=== PATIENT | female | born 1945 | race Caucasian/White ===

== ENCOUNTER 2019-05-14 14:39 | Day surgery (SDC) | payer OTHER ==
[2019-05-14] MEDS ORDERED: Marcaine 0.5% SDV 10 ML IJ ONE (14:40)
[2019-05-14] MEDS ORDERED: Depo-Medrol 40 MG/ML IM ONE (14:40)
[2019-05-14] MEDS ORDERED: Xylocaine 1% Vial 30 ML PF IJ ONE (14:40)
--- NOTE | 2019-05-14 16:59 | XRAY ---
8 seconds fluoroscopy time in surgery for left knee injection.
--- NOTE | 2019-05-14 17:00 | XRAY ---
Indication: Left knee injection. Intraoperative fluoroscopy was provided for 8 seconds. Single digital spot image submitted for interpretation demonstrates needle tip projecting over the left femur intercondylar notch. Small amount of contrast injected for needle tip placement. Correlate with intraoperative findings/report.
== END 2019-05-14 16:30 | disposition home or self-care (01) ==
LOC: SDC-PAIN 14:39
PROVIDERS: ATTEND Psychiatry & Neurology Pain Medicine
DX: M17.12 Unilateral primary osteoarthritis, left knee (principal); J44.9 Chronic obstructive pulmonary disease, unspecified; Z79.899 Other long term (current) drug therapy
CPT/HCPCS: 73560; 77002; J1030; J2001

== ENCOUNTER 2019-06-11 13:36 | Day surgery (SDC) | payer OTHER ==
[2019-06-11] MEDS ORDERED: Xylocaine 1% Vial 30 ML PF IJ ONE (13:37)
[2019-06-11] MEDS ORDERED: Depo-Medrol 40 MG/ML IM ONE (13:37)
[2019-06-11] MEDS ORDERED: Marcaine 0.5% SDV 10 ML IJ ONE (13:37)
--- NOTE | 2019-06-11 16:13 | XRAY ---
Indication: Left hip intra-articular injection. Intraoperative fluoroscopy was provided for 11 seconds. Single digital spot image submitted for interpretation demonstrates needle just lateral to the left femur head. Small amount of contrast injected for needle tip placement. Correlate with intraoperative findings/report.
--- NOTE | 2019-06-11 16:54 | XRAY ---
11 seconds fluoroscopy time in surgery for left intra-articular hip injection.
== END 2019-06-11 15:11 | disposition home or self-care (01) ==
LOC: SDC-PAIN 13:36
PROVIDERS: ATTEND Psychiatry & Neurology Pain Medicine
DX: M16.12 Unilateral primary osteoarthritis, left hip (principal); J44.9 Chronic obstructive pulmonary disease, unspecified; F32.9 Major depressive disorder, single episode, unspecified; Z79.899 Other long term (current) drug therapy
CPT/HCPCS: 20610; 73501; 77002; J1030; J2001; Q9966

== ENCOUNTER 2019-07-09 13:34 | Day surgery (SDC) | payer OTHER ==
[2019-07-09] MEDS ORDERED: Xylocaine 1% Vial 30 ML PF IJ ONE (13:35)
[2019-07-09] MEDS ORDERED: Marcaine 0.5% SDV 10 ML IJ ONE (13:35)
[2019-07-09] MEDS ORDERED: Depo-Medrol 40 MG/ML IM ONE (13:35)
--- NOTE | 2019-07-09 16:34 | XRAY ---
Indication: Left SI joint injection. Intraoperative fluoroscopy was provided for 11 seconds. 2 digital spot images submitted for interpretation demonstrates posterior needle tip projecting over the inferior left SI joint. Correlate with intraoperative findings/report.
--- NOTE | 2019-07-09 16:36 | XRAY ---
11 seconds fluoroscopy time in surgery for left SI joint injection.
== END 2019-07-09 14:35 | disposition home or self-care (01) ==
LOC: SDC-PAIN 13:34
PROVIDERS: ATTEND Psychiatry & Neurology Pain Medicine
DX: M46.1 Sacroiliitis, not elsewhere classified (principal); J44.9 Chronic obstructive pulmonary disease, unspecified; Z79.899 Other long term (current) drug therapy
CPT/HCPCS: 27096; 72020; 77002; J1030; J2001; G0260

== ENCOUNTER 2020-03-17 10:41 | Day surgery (SDC) | payer OTHER, MEDICARE ==
[2020-03-17] MEDS ORDERED: Sodium Chloride 0.9% 10 ML FLUSH Syringe IJ ONE (10:42)
[2020-03-17] MEDS ORDERED: Depo-Medrol 40 MG/ML IM ONE (10:42)
--- NOTE | 2020-03-17 13:04 | XRAY ---
Indication: Left L4-S1 transforaminal DENA. Intraoperative fluoroscopy was provided for 27 seconds. 3 digital spot images submitted for interpretation demonstrate posterior needle tips projecting over the expected course of the left L4 and L5 nerve roots. Small amount of contrast injected for needle tip placement. Correlate with intraoperative findings/report.
[2020-03-17] MEDS ORDERED: Ketamine HCl 50 MG/ML ONE (13:07)
[2020-03-17] MEDS ORDERED: DIPRIVAN 200 MG/20 ML IV ONE (13:07)
--- NOTE | 2020-03-17 13:23 | XRAY ---
27 seconds fluoroscopy time in surgery for left L4-S1 transforaminal DENA.
[2020-03-17] MEDS ORDERED: Lactated Ringers 1,000 ML IV ONE (14:46)
== END 2020-03-17 12:41 | disposition home or self-care (01) ==
LOC: SDC-PAIN 10:41
PROVIDERS: ATTEND Psychiatry & Neurology Pain Medicine
DX: M54.16 Radiculopathy, lumbar region (principal); J44.9 Chronic obstructive pulmonary disease, unspecified; Z85.3 Personal history of malignant neoplasm of breast; Z79.899 Other long term (current) drug therapy
CPT/HCPCS: 64483; 64484; 64493; 72100; 77003; 99100; J1030; J2704; Q9966

== ENCOUNTER 2020-03-24 10:17 | Day surgery (SDC) | payer MEDICARE ==
[2020-03-24] MEDS ORDERED: Depo-Medrol 40 MG/ML IM ONE (10:18)
[2020-03-24] MEDS ORDERED: Xylocaine 1% Vial 30 ML PF IJ ONE (10:18)
[2020-03-24] MEDS ORDERED: Sodium Chloride 0.9(Preservative Free) 10 ML IJ ONE (10:18)
[2020-03-24] MEDS ORDERED: DIPRIVAN 200 MG/20 ML IV ONE (12:04)
[2020-03-24] MEDS ORDERED: Ketamine HCl 50 MG/ML ONE (12:04)
[2020-03-24] MEDS ORDERED: Lactated Ringers 1,000 ML IV ONE (12:37)
--- NOTE | 2020-03-24 14:03 | XRAY ---
Indication: Lumbar DENA. Intraoperative fluoroscopy was provided for 9 seconds. 2 digital spot images submitted for interpretation demonstrates midline posterior needle tip projecting just posterior to the lumbosacral junction interspace. Small amount of contrast injected for needle tip placement. Correlate with intraoperative findings/report.
--- NOTE | 2020-03-24 14:21 | XRAY ---
9 seconds fluoroscopy time in surgery for lumbar DENA.
== END 2020-03-24 12:33 | disposition home or self-care (01) ==
LOC: SDC-PAIN 10:17
PROVIDERS: ATTEND Psychiatry & Neurology Pain Medicine
DX: M54.16 Radiculopathy, lumbar region (principal); J44.9 Chronic obstructive pulmonary disease, unspecified; F32.9 Major depressive disorder, single episode, unspecified; Z79.899 Other long term (current) drug therapy
CPT/HCPCS: 62323; 72100; 77003; J1030; J2001; J2704; Q9966

== ENCOUNTER 2020-08-25 13:18 | Day surgery (SDC) | payer MEDICARE ==
[2020-08-25] MEDS ORDERED: Depo-Medrol 40 MG/ML IM ONE (13:19)
[2020-08-25] MEDS ORDERED: Sodium Chloride 0.9(Preservative Free) 10 ML IJ ONE (13:19)
[2020-08-25] MEDS ORDERED: Ketamine HCl 50 MG/ML ONE (15:09)
[2020-08-25] MEDS ORDERED: DIPRIVAN 200 MG/20 ML IV ONE (15:09)
--- NOTE | 2020-08-25 16:39 | XRAY ---
Indication: Right L4-S1 transforaminal DENA. Intraoperative fluoroscopy was provided for 36 seconds. 6 digital spot images submitted for interpretation demonstrates posterior needle tips projecting over the expected right L4 and L5 nerve roots. Small amount of contrast injected for needle tip placement. Correlate with intraoperative findings/report.
[2020-08-25] MEDS ORDERED: Lactated Ringers 1,000 ML IV ONE (16:51)
--- NOTE | 2020-08-25 16:51 | XRAY ---
36 seconds fluoroscopy time in surgery for right L4-S1 transforaminal DENA.
== END 2020-08-25 15:35 | disposition home or self-care (01) ==
LOC: SDC-PAIN 13:18
PROVIDERS: ATTEND Psychiatry & Neurology Pain Medicine
DX: M54.16 Radiculopathy, lumbar region (principal); J44.9 Chronic obstructive pulmonary disease, unspecified; Z85.3 Personal history of malignant neoplasm of breast; Z79.899 Other long term (current) drug therapy
CPT/HCPCS: 64483; 64484; 72100; 77003; J1030; J2704; Q9966

== ENCOUNTER 2021-02-02 11:21 | Day surgery (SDC) | payer MEDICARE ==
[2021-02-02] MEDS ORDERED: Depo-Medrol 40 MG/ML IM ONE (11:22)
[2021-02-02] MEDS ORDERED: Sodium Chloride 0.9(Preservative Free) 10 ML IJ ONE (11:22)
[2021-02-02] MEDS ORDERED: DIPRIVAN 200 MG/20 ML IV ONE (13:38)
--- NOTE | 2021-02-02 14:22 | XRAY ---
Indication: Right L4-S1 transforaminal DENA. Intraoperative fluoroscopy provided for 40 seconds. 3 digital spot images submitted for interpretation demonstrates posterior needle tips projecting over the expected right L4 and L5 nerve roots. Small amount of contrast injected for needle tip placement. Correlate with intraoperative findings/report.
--- NOTE | 2021-02-02 15:21 | XRAY ---
40 seconds fluoroscopy time in surgery for right L4-S1 transforaminal DENA.
[2021-02-02] MEDS ORDERED: Lactated Ringers 1,000 ML IV ONE (16:11)
== END 2021-02-02 14:06 | disposition home or self-care (01) ==
LOC: SDC-PAIN 11:21
PROVIDERS: ATTEND Psychiatry & Neurology Pain Medicine
DX: M54.16 Radiculopathy, lumbar region (principal); J44.9 Chronic obstructive pulmonary disease, unspecified; Z85.3 Personal history of malignant neoplasm of breast; Z79.899 Other long term (current) drug therapy
CPT/HCPCS: 64483; 64484; 72100; 77003; J1030; J2704; Q9966

== ENCOUNTER 2021-03-23 12:52 | Emergency (ER) | payer MEDICARE ==
--- NOTE | 2021-03-23 13:02 | ERPHSYRPT ---
- History of Present Illness Time Seen by Provider: 03/23/21 13:01 Source: patient, family Exam Limitations: no limitations Physician History: This is a thin 75-year-old white female patient of nurse practitioner Kortney who presents with a several week history of intermittent weakness and sensation that she is not getting of enough air. She states she has no chest pain and she is not really short of breath. She does feel nauseated but has not vomited. She has no abdominal pain. She has had no diarrhea. She is had no fevers she has no known exposures to anybody with viral illnesses of any kind. Patient takes only antidepressant medication. Timing/Duration: week(s) Severity: mild (Mild to moderate) Associated Symptoms: nausea, weakness, No vomiting, No abdominal pain, No shortness of breath, No chest pain, No headaches, No syncope Allergies/Adverse Reactions: No Known Drug Allergies Allergy (Verified 03/23/21 13:07) Home Medications: Paroxetine HCl 20 mg [Paxil 20 MG] 20 mg PO DAILY 12/24/17 [History] Celecoxib [Celebrex] 200 mg PO BID 01/21/18 [History] Pregabalin 25 mg [Lyrica 25 MG] 25 mg PO DAILY 01/21/18 [History] Travel Risk - International Travel Have you traveled outside of the country in past 3 weeks: No - Coronavirus Screening Are you exhibiting any of the following symptoms?: No Close contact with a COVID-19 positive Pt in past 14-21 Days: No - Review of Systems Constitutional: Weakness Eyes: No Symptoms Ears, Nose, & Throat: No Symptoms Respiratory: No Symptoms Cardiac: No Symptoms Abdominal/Gastrointestinal: Nausea, No Abdominal Pain, No Vomiting, No Diarrhea Genitourinary Symptoms: No Symptoms Musculoskeletal: No Symptoms Skin: No Symptoms Neurological: No Symptoms Psychological: No Symptoms Endocrine: No Symptoms Hematologic/Lymphatic: No Symptoms Immunological/Allergic: No Symptoms All Other Systems: Reviewed and Negative - Past Medical History Pertinent Past Medical History: Yes - Past Surgical History Past Surgical History: Yes - Nursing Vital Signs Nursing Vital Signs: Initial Vital Signs Temperature 97.8 F 03/23/21 13:00 Pulse Rate 96 H 03/23/21 13:00 Respiratory Rate 20 03/23/21 13:00 Blood Pressure 136/83 03/23/21 13:00 O2 Sat by Pulse Oximetry 98 06/02/21 13:00 Pain Scale Pain Intensity 0 - Physical Exam General Appearance: no apparent distress, alert, anxiety, thin Eye Exam: PERRL/EOMI, eyes nml inspection Ears, Nose, Throat Exam: normal ENT inspection, moist mucous membranes Neck Exam: normal inspection, non-tender, supple, full range of motion Respiratory Exam: normal breath sounds, lungs clear, airway intact, No chest tenderness, No respiratory distress, No accessory muscle use, No rhonchi, No wheezing, No stridor Cardiovascular Exam: regular rate/rhythm, normal heart sounds, normal peripheral pulses Gastrointestinal/Abdomen Exam: soft, normal bowel sounds, No tenderness Pelvic Exam: not done Rectal Exam: not done Back Exam: normal inspection Extremity Exam: normal inspection, normal range of motion, pelvis stable Neurologic Exam: alert, oriented x 3, cooperative, revenue cycle manager II-XII nml as tested, normal mood/affect, nml cerebellar function, nml station & gait, sensation nml Skin Exam: normal color, warm, dry Lymphatic Exam: No adenopathy SpO2 Interpretation: normal O2 Delivery: Room Air - Course Nursing assessment & vital signs reviewed: Yes EKG Interpreted by Me: RATE ([id number]), Sinus Rhythm, NORMAL AXIS, NORMAL INTERVALS, NORMAL QRS, NORMAL ST-T, Other (No acute ischemic changes on today's EKG. There is no comparison EKG available.) Ordered Tests: Active Orders 24 hr Category Date Time Status EKG-ER Only STAT Care 03/23/21 13:19 Active IV Insertion STAT Care 03/23/21 13:19 Active ABDOMEN AND PELVIS W/0 CONTRAS [CT] Stat Exams 03/23/21 14:06 Completed CHEST 1 VIEW (PORTABLE) Stat Exams 03/23/21 13:20 Completed CHEST WITH CONTRAST [CT] Stat Exams 03/23/21 14:26 Completed BMP Stat Lab 03/23/21 15:33 Completed CBC W DIFF Stat Lab 03/23/21 13:20 Completed CMP Routine Lab 03/23/21 13:30 Completed CULTURE,URINE Stat Lab 03/23/21 13:30 Received D-DIMER QUANTITATIVE Stat Lab 03/23/21 13:30 Completed INFLUENZA A+B CLEMENT Stat Lab 03/23/21 14:00 Completed Lactic Acid Stat Lab 03/23/21 13:19 Completed Manual Differential NC Stat Lab 03/23/21 13:20 Completed [place] Screen Stat Lab 03/23/21 13:30 Completed NT PRO BNP Routine Lab 03/23/21 13:30 Completed TROPONIN Q3H Lab 03/23/21 13:30 Completed TROPONIN Q3H Lab 03/23/21 15:33 Completed TROPONIN Q3H Lab 03/23/21 19:30 Ordered TROPONIN Q3H Lab 03/23/21 22:30 Ordered TROPONIN Q3H Lab 03/24/21 01:30 Ordered UA W/RFX UR CULTURE Stat Lab 03/23/21 13:30 Completed Medication Summary Discontinued Medications Generic Name Dose Route Start Last Admin Trade Name Freq PRN Reason Stop Dose Admin Famotidine 20 mg 03/23/21 13:19 03/23/21 13:27 Pepcid 20 Mg Vial IV 03/23/21 13:20 20 mg STAT ONE Administration Famotidine Confirm 03/23/21 13:25 Pepcid 20 Mg Vial Administered 03/23/21 13:26 Dose 20 mg IV .STK-MED ONE Sodium Chloride 500 mls @ 500 mls/hr 03/23/21 13:21 03/23/21 14:51 Sodium Chloride 0.9% 500 Ml IV 03/23/21 14:20 Infused .Q1H ONE Infusion Sodium Chloride Confirm 03/23/21 13:25 Sodium Chloride 0.9% 500 Ml Administered 03/23/21 13:26 Dose 500 mls @ ud IV .STK-MED ONE Sodium Chloride 500 mls @ 500 mls/hr 03/23/21 14:26 03/23/21 15:29 Sodium Chloride 0.9% 500 Ml IV 03/23/21 15:25 Infused .Q1H ONE Infusion Sodium Chloride Confirm 03/23/21 14:28 Sodium Chloride 0.9% 500 Ml Administered 03/23/21 14:29 Dose 500 mls @ ud IV .STK-MED ONE Ceftriaxone Sodium/Dextrose 1 g in 50 mls @ 100 mls/hr 03/23/21 15:07 03/23/21 16:19 Rocephin 1 Gm-D5w 50 Ml Bag IV 03/23/21 15:36 Infused STAT STA Infusion Ceftriaxone Sodium/Dextrose Confirm 03/23/21 15:15 Rocephin 1 Gm-D5w 50 Ml Bag Administered 03/23/21 15:16 Dose 1 g in 50 mls @ ud IV .STK-MED ONE Ondansetron HCl 4 mg 03/23/21 13:19 03/23/21 13:27 Zofran 4 Mg/2 Ml Vial IV 03/23/21 13:20 4 mg STAT ONE Administration Ondansetron HCl Confirm 03/23/21 13:25 Zofran 4 Mg/2 Ml Vial Administered 03/23/21 13:26 Dose 4 mg .ROUTE .STK-MED ONE Lab/Rad Data: Laboratory Result Diagrams 03/23/21 13:20 03/23/21 15:33 Laboratory Results 03/23/21 03/23/21 03/23/21 Range/Units 15:33 15:33 14:00 WBC (4.0-10.5) K/mm3 RBC (4.1-5.4) M/mm3 Hgb (12.0-16.0) gm/dl Hct (35-47) % MCV (78-100) fl MCH (26-32) pg MCHC (32-36) g/dl RDW (11.5-14.0) % Plt Count (150-450) K/mm3 MPV (7.5-11.0) fl Segmented Neutrophils (36.0-66.0) % Band Neutrophils (0.0-2.0) % Lymphocytes (Manual) (24-44) % Monocytes (Manual) (0.0-12.0) % Eosinophils (Manual) (0.00-3.0) % Toxic Granulation Platelet Estimate (NORMAL) RBC Morphology D-Dimer (215-500) ng/mL Sodium 140 (137-145) mmol/L Potassium 4.6 (3.5-5.1) mmol/L Chloride 108 H (98-107) mmol/L Carbon Dioxide 27 (22-30) mmol/L Anion Gap 10.1 (5-15) MEQ/L BUN 22 H (7-17) mg/dL Creatinine 1.06 H (0.52-1.04) mg/dL Estimated GFR 54.0 ML/MIN Glucose 96 (74-106) mg/dL Lactic Acid (0.4-2.0) Calcium 8.8 (8.4-10.2) mg/dL Total Bilirubin (0.2-1.3) mg/dL AST (14-36) U/L ALT (0-35) U/L Alkaline Phosphatase (38-126) U/L Troponin I < 0.012 (0.000-0.034) ng/mL NT-Pro-B Natriuret Pep (0-900) pg/mL Serum Total Protein (6.3-8.2) g/dL Albumin (3.5-5.0) g/dL Urine Color (YELLOW) Urine Appearance (CLEAR) Urine pH (5-6) Ur Specific T[place]ill (1.005-1.025) Urine Protein (Negative) Urine Ketones (NEGATIVE) Urine Blood (0-5) Wily/ul Urine Nitrite (NEGATIVE) Urine Bilirubin (NEGATIVE) Urine Urobilinogen (0-1) mg/dL Ur Leukocyte Esterase (NEGATIVE) Urine WBC (Auto) (0-5) /HPF Urine RBC (Auto) (0-2) /HPF U Epithel Cells (Auto) (FEW) /HPF Urine Bacteria (Auto) (NEGATIVE) /HPF Urine Mucus (Auto) (NEGATIVE) /HPF Urine Culture Reflexed (NO) Urine Glucose (NEGATIVE) mg/dL Monoscreen (Negative) Influenza Type A Ag NEGATIVE (NEGATIVE) Influenza Type B Ag NEGATIVE (NEGATIVE) 03/23/21 03/23/21 03/23/21 Range/Units 13:30 13:30 13:30 WBC (4.0-10.5) K/mm3 RBC (4.1-5.4) M/mm3 Hgb (12.0-16.0) gm/dl Hct (35-47) % MCV (78-100) fl MCH (26-32) pg MCHC (32-36) g/dl RDW (11.5-14.0) % Plt Count (150-450) K/mm3 MPV (7.5-11.0) fl Segmented Neutrophils (36.0-66.0) % Band Neutrophils (0.0-2.0) % Lymphocytes (Manual) (24-44) % Monocytes (Manual) (0.0-12.0) % Eosinophils (Manual) (0.00-3.0) % Toxic Granulation Platelet Estimate (NORMAL) RBC Morphology D-Dimer 9 H* (215-500) ng/mL Sodium 139 (137-145) mmol/L Potassium 4.1 (3.5-5.1) mmol/L Chloride 103 (98-107) mmol/L Carbon Dioxide 25 (22-30) mmol/L Anion Gap 14.9 (5-15) MEQ/L BUN 24 H (7-17) mg/dL Creatinine 1.23 H (0.52-1.04) mg/dL Estimated GFR 45.5 ML/MIN Glucose 125 H (74-106) mg/dL Lactic Acid (0.4-2.0) Calcium 9.9 (8.4-10.2) mg/dL Total Bilirubin 0.70 (0.2-1.3) mg/dL AST 21 (14-36) U/L ALT 12 (0-35) U/L Alkaline Phosphatase 97 (38-126) U/L Troponin I < 0.012 (0.000-0.034) ng/mL NT-Pro-B Natriuret Pep 177 (0-900) pg/mL Serum Total Protein 7.6 (6.3-8.2) g/dL Albumin 4.5 (3.5-5.0) g/dL Urine Color (YELLOW) Urine Appearance (CLEAR) Urine pH (5-6) Ur Specific T[place]ill (1.005-1.025) Urine Protein (Negative) Urine Ketones (NEGATIVE) Urine Blood (0-5) Wily/ul Urine Nitrite (NEGATIVE) Urine Bilirubin (NEGATIVE) Urine Urobilinogen (0-1) mg/dL Ur Leukocyte Esterase (NEGATIVE) Urine WBC (Auto) (0-5) /HPF Urine RBC (Auto) (0-2) /HPF U Epithel Cells (Auto) (FEW) /HPF Urine Bacteria (Auto) (NEGATIVE) /HPF Urine Mucus (Auto) (NEGATIVE) /HPF Urine Culture Reflexed (NO) Urine Glucose (NEGATIVE) mg/dL Monoscreen NEGATIVE (Negative) Influenza Type A Ag (NEGATIVE) Influenza Type B Ag (NEGATIVE) 03/23/21 03/23/21 03/23/21 Range/Units 13:30 13:20 13:19 WBC 15.0 H (4.0-10.5) K/mm3 RBC 5.01 (4.1-5.4) M/mm3 Hgb 14.6 (12.0-16.0) gm/dl Hct 47.1 H (35-47) % MCV 94.0 (78-100) fl MCH 29.1 (26-32) pg MCHC 31.0 L (32-36) g/dl RDW 14.3 H (11.5-14.0) % Plt Count 318 (150-450) K/mm3 MPV 10.7 (7.5-11.0) fl Segmented Neutrophils 62 (36.0-66.0) % Band Neutrophils 2 (0.0-2.0) % Lymphocytes (Manual) 25 (24-44) % Monocytes (Manual) 3 (0.0-12.0) % Eosinophils (Manual) 8 H (0.00-3.0) % Toxic Granulation 1+ Platelet Estimate NORMAL (NORMAL) RBC Morphology NORMAL D-Dimer (215-500) ng/mL Sodium (137-145) mmol/L Potassium (3.5-5.1) mmol/L Chloride (98-107) mmol/L Carbon Dioxide (22-30) mmol/L Anion Gap (5-15) MEQ/L BUN (7-17) mg/dL Creatinine (0.52-1.04) mg/dL Estimated GFR ML/MIN Glucose (74-106) mg/dL Lactic Acid 1.4 (0.4-2.0) Calcium (8.4-10.2) mg/dL Total Bilirubin (0.2-1.3) mg/dL AST (14-36) U/L ALT (0-35) U/L Alkaline Phosphatase (38-126) U/L Troponin I (0.000-0.034) ng/mL NT-Pro-B Natriuret Pep (0-900) pg/mL Serum Total Protein (6.3-8.2) g/dL Albumin (3.5-5.0) g/dL Urine Color REGAN (YELLOW) Urine Appearance SLIGHTLY CLOUDY (CLEAR) Urine pH 6.0 (5-6) Ur Specific T[place]ill 1.021 (1.005-1.025) Urine Protein 30 (Negative) Urine Ketones TRACE (NEGATIVE) Urine Blood LARGE (0-5) Wily/ul Urine Nitrite NEGATIVE (NEGATIVE) Urine Bilirubin NEGATIVE (NEGATIVE) Urine Urobilinogen 2 (0-1) mg/dL Ur Leukocyte Esterase TRACE (NEGATIVE) Urine WBC (Auto) 0-2 (0-5) /HPF Urine RBC (Auto) 26-50 (0-2) /HPF U Epithel Cells (Auto) RARE (FEW) /HPF Urine Bacteria (Auto) RARE (NEGATIVE) /HPF Urine Mucus (Auto) SLIGHT (NEGATIVE) /HPF Urine Culture Reflexed YES (NO) Urine Glucose NEGATIVE (NEGATIVE) mg/dL Monoscreen (Negative) Influenza Type A Ag (NEGATIVE) Influenza Type B Ag (NEGATIVE) - Progress Progress Note: 03/23/21 15:54 Chest x-ray shows nonacute chest with chronic features. 03/23/21 17:14 CT of the chest with contrast reveals no acute cardiopulmonary process. There are no pulmonary emboli present. 03/23/21 17:18 CAT scan of the abdomen and pelvis without contrast reveals no acute intra- abdominal or intrapelvic findings. There is gallbladder sludge present. - Departure Clinical Impression: UTI (urinary tract infection), Hematuria, Leukocytosis, Weakness, Mild dehydration Condition: Stable Critical Care Time: No Referrals: [facility] CARTAGE[facility], [facility] [Primary Care Provider] - Additional Instructions: Drink plenty of fluids. Take your medication as prescribed. Follow-up with your primary care physician for further management. Prescriptions: Ciprofloxacin [Cipro 500 MG] 500 mg PO BID #14 tablet
[2021-03-23 13:07] VITALS: O2SAT 98
[2021-03-23] MEDS ORDERED: Pepcid 20 MG VIAL IV ONE ×2 (13:19→13:25)
[2021-03-23] MEDS ORDERED: Zofran 4 MG/2 ML VIAL IV ONE (13:19)
[2021-03-23] MEDS ORDERED: Sodium Chloride 0.9% 500 ML 500 ML IV ONE ×4 (13:21→14:28)
[2021-03-23] MEDS ORDERED: Zofran 4 MG/2 ML VIAL ONE (13:25)
[2021-03-23 13:41] LABS: Hematocrit 47.1 % (35-47); Hemoglobin 14.6 gm/dl (12.0-16.0); Mean Corpuscular Hemoglobin 29.1 pg (26-32); Mean Platelet Volume 10.7 fl (7.5-11.0); Platelet Count 318 K/mm3 (150-450); Red Blood Count 5.01 M/mm3 (4.1-5.4); Red Cell Distribution Width 14.3 % (11.5-14.0)
[2021-03-23 13:48] LABS: Appearance SLIGHTLY CLOUDY (CLEAR); Bacteria RARE /HPF (NEGATIVE); Bilirubin NEGATIVE (NEGATIVE); Blood LARGE Ery/ul (0-5); Epithelial Cells RARE /HPF (FEW); Glucose NEGATIVE (NEGATIVE); Ketones TRACE (NEGATIVE); Leukocyte Esterase TRACE (NEGATIVE); Mucus SLIGHT /HPF (NEGATIVE); Nitrite NEGATIVE (NEGATIVE); Protein,Urine Dip 30 (Negative); RBC 26-50 /HPF (0-2); Specific Gravity 1.021 (1.005-1.025); Urobilinogen 2 mg/dL (0-1); WBC 0-2 /HPF (0-5)
--- NOTE | 2021-03-23 14:05 | XRAY ---
Indication: Short of breath.. Comparison: 2019. Portable apical lordotic chest chest again demonstrates COPD, left upper lobe calcified granuloma, and left base fibrosis/scarring. No focal infiltrate, consolidation, or large effusion. Heart not enlarged for AP portable technique. Bony thorax intact again with mild osteopenia and degenerative changes. Impression: Continued nonacute chest with chronic features.
[2021-03-23 14:06] LABS: ALBUMIN 4.5 g/dL (3.5-5.0); ALKALINE PHOSPHATASE 97 U/L (38-126); ANION GAP 14.9 MEQ/L (5-15); BLOOD UREA NITROGEN 24 mg/dL (7-17); CHLORIDE 103 mmol/L (98-107); Calcium 9.9 mg/dL (8.4-10.2); Carbon Dioxide 25 mmol/L (22-30); Creatinine 1 1.23 mg/dL (0.52-1.04); EST GLOMERULAR FILTRATION RATE 45.5 ML/MIN; Glucose 125 mg/dL (74-106); NT PRO BNP 177 pg/mL (0-900); Potassium 4.1 mmol/L (3.5-5.1); SGOT/AST 21 U/L (14-36); SGPT/ALT 12 U/L (0-35); SODIUM 139 mmol/L (137-145); TROPONIN < 0.012 ng/mL (0.000-0.034); Total Protein 7.6 g/dL (6.3-8.2)
[2021-03-23 14:28] LABS: INFLUENZA A NEGATIVE (NEGATIVE); INFLUENZA B NEGATIVE (NEGATIVE)
[2021-03-23] MEDS ORDERED: ROCEPHIN 1 Gm-D5w 50 ml Bag** 1 G/50 ML IVPB IV STA (15:07)
[2021-03-23] MEDS ORDERED: ROCEPHIN 1 Gm-D5w 50 ml Bag** 1 G/50 ML IVPB IV ONE (15:15)
[2021-03-23 15:50] LABS: ANION GAP 10.1 MEQ/L (5-15); Calcium 8.8 mg/dL (8.4-10.2); Creatinine 1 1.06 mg/dL (0.52-1.04); Potassium 4.6 mmol/L (3.5-5.1)
[2021-03-23 17:03] VITALS: BP 102/52; PULSE 62
[2021-03-23 17:05] LABS: BAND 2 % (0.0-2.0); Eosinophil 8 % (0.00-3.0); Lymphocytes 25 % (24-44); Monocyte 3 % (0.0-12.0); Neutrophils 62 % (36.0-66.0); Platelet Estimate NORMAL (NORMAL); Total Cells Counted 100; Toxic Granulation 1+
--- NOTE | 2021-03-23 17:07 | XRAY ---
Indication: Short of breath. Elevated d-dimer. Multiple contiguous axial images obtained through the chest using 80 cc Isovue 370 contrast and PE protocol. Comparison: None There is good opacification of the pulmonary arteries to include the lobar and segmental branches. No pulmonary embolus. Heart is not enlarged. Aorta is mildly arteriosclerotic without aneurysm/dissection. No pathologic mediastinal/hilar lymphadenopathy. Small hiatal hernia. Lungs demonstrates mild pulmonary emphysema, diffuse bilateral scattered peripheral fibrosis/scarring, and mild bibasilar dependent atelectasis. Small left upper lobe calcified granuloma. No suspicious pulmonary mass, infiltrate, or effusion. Bony thorax demonstrates mild osteopenia. CT abdomen/pelvis reported separately. Impression: 1. Negative pulmonary embolus. No acute cardiopulmonary abnormalities. 2. Incidental pulmonary emphysema, scattered fibrosis/scarring, left upper lobe calcified granuloma, and small hiatal hernia.
--- NOTE | 2021-03-23 17:15 | XRAY ---
Indication: Hematuria, nausea, leukocytosis, and low back pain. Multiple contiguous axial images obtained through the abdomen and pelvis without contrast as ordered. Comparison: None CT chest reported separately. Noncontrasted stomach and bowel loops appear nonobstructed. Diffuse scattered colonic diverticulosis, greatest sigmoid colon. No free fluid/air. 2 mm left upper renal calyx calculus without hydronephrosis or perinephric fluid. Minimal sludge in the dependent gallbladder. Remaining liver, pancreas, spleen, adrenal glands, kidneys, ureters, bladder, and uterus are unremarkable for noncontrast exam. Moderate scattered aortoiliac calcifications with distal aortic ectasia. Osseous structures demonstrate osteopenia and mild degenerative changes throughout the lumbar spine. L1 segment demonstrates remote appearing compression fracture with 50-75% height loss and fracture fragment slightly encroaching on the spinal canal. No ventral or inguinal hernias. Impression: 1. Gallbladder sludge. 2. Colonic diverticulosis without diverticulitis. 3. Nonobstructing left renal micro-calculus. 4. Remote L1 compression fracture with fracture fragment slightly encroaching on the spinal canal.
== END 2021-03-23 17:27 | disposition home or self-care (01) ==
LOC: ED 12:52
DX: N39.0 Urinary tract infection, site not specified (principal); R31.9 Hematuria, unspecified; D72.829 Elevated white blood cell count, unspecified; R53.1 Weakness; E86.0 Dehydration; Z79.899 Other long term (current) drug therapy
CPT/HCPCS: 36000; 36415; 71045; 71260; 74176; 80048; 80053; 81001; 83605; 83880; 84484; 85025; 85379; 86308; 87086; 87400; 93005; 96360; 96361; 96365; 96374; 96375; 99285; J0696; J2405

== ENCOUNTER 2021-04-06 10:43 | Day surgery (SDC) | payer MEDICARE ==
[2021-04-06] MEDS ORDERED: BUPIVACAINE 0.5% VIAL IJ ONE (10:44)
[2021-04-06] MEDS ORDERED: DIPRIVAN 200 MG/20 ML IV ONE (12:14)
--- NOTE | 2021-04-06 14:57 | XRAY ---
Indication: Bilateral L4-S1 MBB. Intraoperative fluoroscopy provided for 12 seconds. Single digital spot images submitted for interpretation demonstrates posterior needle tips projecting over the expected left and right L4-S1 nerve roots. Correlate with intraoperative findings/report.
--- NOTE | 2021-04-06 15:10 | XRAY ---
12 seconds of fluoroscopy was used in surgery for a bilateral L4-L5, L5-S1 MBB.
[2021-04-06] MEDS ORDERED: Lactated Ringers 1,000 ML IV ONE (16:02)
== END 2021-04-06 12:41 | disposition home or self-care (01) ==
LOC: SDC-PAIN 10:43
PROVIDERS: ATTEND Psychiatry & Neurology Pain Medicine
DX: M47.816 Spondylosis without myelopathy or radiculopathy, lumbar region (principal); J44.9 Chronic obstructive pulmonary disease, unspecified; F32.9 Major depressive disorder, single episode, unspecified; G56.00 Carpal tunnel syndrome, unspecified upper limb; Z79.899 Other long term (current) drug therapy
CPT/HCPCS: 64493; 64494; 72020; 77002; J2704

== ENCOUNTER 2021-08-10 10:49 | Day surgery (SDC) | payer MEDICARE ==
[2021-08-10] MEDS ORDERED: BUPIVACAINE 0.5% VIAL IJ ONE (10:50)
[2021-08-10] MEDS ORDERED: DIPRIVAN 200 MG/20 ML IV ONE (12:11)
--- NOTE | 2021-08-10 14:08 | XRAY ---
Indication: Bilateral L4-S1 MBB. Intraoperative fluoroscopy provided for 8 seconds. Single digital spot image submitted for interpretation demonstrates posterior needle tips projecting over the expected left and right L4-S1 nerve roots. Correlate with intraoperative findings/report.
--- NOTE | 2021-08-10 14:23 | XRAY ---
8 seconds of fluoroscopy was used in surgery for bilateral L4-S1 MBB.
[2021-08-10] MEDS ORDERED: Lactated Ringers 1,000 ML IV ONE (16:28)
== END 2021-08-10 12:55 | disposition home or self-care (01) ==
LOC: SDC-PAIN 10:49
PROVIDERS: ATTEND Psychiatry & Neurology Pain Medicine
DX: M47.816 Spondylosis without myelopathy or radiculopathy, lumbar region (principal); Z79.899 Other long term (current) drug therapy
CPT/HCPCS: 64493; 64494; 72020; 77002; J2704

== ENCOUNTER 2021-10-25 21:33 | Observation (INO) | payer MEDICARE ==
[2021-10-25] MEDS ORDERED: Sodium Chloride 0.9% 1000 ML 1,000 ML IV STA (22:14)
[2021-10-25] MEDS ORDERED: Sodium Chloride 0.9% 1000 ML 1,000 ML ONE (22:15)
[2021-10-25 22:19] LABS: Basophil (Absolute #) 0.05 (0-0.4); Eosinophil % 0.6 % (0.00-5.0); Hemoglobin 13.9 gm/dl (12.0-16.0); Lymphocyte (Absolute #) 1.82 (1.0-4.6); Lymphocytes % 10.3 % (24.0-44.0); Mean Cell Volume 94.6 fl (78-100); Mean Corpuscular Hemoglobin 29.9 pg (26-32); Mean Corpuscular Hgb Concent. 31.6 g/dl (32-36); Mean Platelet Volume 9.9 fl (7.5-11.0); Monocyte (Absolute #) 1.24 (0.0-1.3); Neutrophil % 81.8 % (36.0-66.0); Platelet Count 316 K/mm3 (150-450); Red Blood Count 4.65 M/mm3 (4.1-5.4); Red Cell Distribution Width 14.2 % (11.5-14.0); White Blood Count 17.6 K/mm3 (4.0-10.5)
--- NOTE | 2021-10-25 22:30 | ERPHSYRPT ---
- History of Present Illness Time Seen by Provider: 10/25/21 21:39 Source: patient, EMS Exam Limitations: no limitations Patient Subjective Stated Complaint: "I fell while walking." Triage Nursing Assessment: 76 y/o white female who reported that while she was walking through her house, her leg "gave out." She reported that she did fall to the ground. She denied striking her head or experiencing any loss of consciousness. The patient was able to recall the events in full detail. She denied any headache, vision disturbances, auditory disturbances, chest pain, difficulty, nausea/vomiting. Pupils 3mm bilateral. Equal smile without facial droop. Speech clear. Neck supple without lymphadenopathy. Symmetrical chest expansion. heart tones S1/S2 RRR. Lungs vesicular. Left upper extremity with mild weakness. Left lower extremity with severe weakness. Pronator drift to the left upper extremity. Physician History: 76 years old female with history of tobacco abuse presented to the ER with sudden onset weakness of left upper and lower extremity while she was walking back to her room from bathroom around 6 PM this evening and left leg gave away leading to fall. She did not hit her head, no loss of consciousness. She was not able to get up without her 's help. Since then she is having difficulty standing up and ambulating with weakness in the left upper and lower extremity. Denies any feeling of dizziness or lightheadedness before offer the fall. No chest pain palpitations or shortness of breath reported. On EMS arrival patient's blood pressure was in 70s, given fluids and it improved on presentation in the ER to 150s. Patient denies any visual disturbance, difficulty speech or facial numbness. No history of stroke. Timing/Duration: hour(s) (4), constant, sudden Severity: moderate Character of Deficits: LLE, LUE Deficits: cannot walk, falling, decrease ability to stand Baseline/Normal Cognition: alert oriented x 3 Current Cognition: alert oriented x 3 Baseline Gait: walks w/o assistance Associated Symptoms: trouble walking Allergies/Adverse Reactions: No Known Drug Allergies Allergy (Verified 10/25/21 21:41) Home Medications: Paroxetine HCl 20 mg [Paxil 20 MG] 20 mg PO DAILY 12/24/17 [History] Celecoxib [Celebrex] 200 mg PO BID 01/21/18 [History] Pregabalin 25 mg [Lyrica 25 MG] 25 mg PO DAILY 01/21/18 [History] Aspirin 81 gm Chew [Baby Aspirin 81 mg Chew] 81 mg PO DAILY 10/25/21 [History] Hx Tetanus, Diphtheria Vaccination/Date Given: No Hx Influenza Vaccination/Date Given: Yes Hx Pneumococcal Vaccination/Date Given: Yes Travel Risk - International Travel Have you traveled outside of the country in past 3 weeks: No - Coronavirus Screening Are you exhibiting any of the following symptoms?: No Close contact with a COVID-19 positive Pt in past 14-21 Days: No - Vaccine Status Have you recieved a Covid-19 vaccination: No [employer]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 - Vaccination Dates Date of 2cond Vaccination (if applicable): 02/2021 - Review of Systems Constitutional: Fatigue, Weakness Eyes: No Symptoms Ears, Nose, & Throat: No Symptoms Respiratory: No Symptoms Cardiac: No Symptoms Abdominal/Gastrointestinal: No Symptoms Genitourinary Symptoms: No Symptoms Musculoskeletal: No Symptoms Neurological: Focal Weakness, Gait Changes Psychological: No Symptoms Endocrine: No Symptoms Hematologic/Lymphatic: No Symptoms Immunological/Allergic: No Symptoms - Past Medical History Pertinent Past Medical History: Yes Neurological History: No Pertinent History ENT History: No Pertinent History Endocrine Medical History: No Pertinent History GI Medical History: GERD Psycho-Social History: Depression Female Reproductive Disorders: Breast Cancer - Past Surgical History Past Surgical History: Yes Other Surgical History: breast cancer. right breast - Social History Smoking Status: Current every day smoker How long have you smoked: years Exposure to second hand smoke: Yes Drug Use: none Patient Lives Alone: No - Nursing Vital Signs Nursing Vital Signs: Initial Vital Signs Temperature 98.8 F 10/25/21 21:33 Pulse Rate 60 10/25/21 21:33 Respiratory Rate 18 10/25/21 21:33 Blood Pressure 153/77 10/25/21 21:33 O2 Sat by Pulse Oximetry 98 10/25/21 21:33 Pain Scale Pain Intensity 0 - Keiko Coma Scale Best Eye Response ([place]): (4) open spontaneously Best Verbal Response (Keiko): (5) oriented Best Motor Response (Keiko): (6) obeys commands Keiko Total: 15 - Physical Exam General Appearance: no apparent distress, alert, anxiety Eye Exam: bilateral eye: normal inspection, PERRL, EOMI Ears, Nose, Throat Exam: normal ENT inspection, TMs normal, pharynx normal, moist mucous membranes Neck Exam: normal inspection, non-tender, supple, full range of motion, No meningismus Respiratory: normal breath sounds, lungs clear Cardiovascular: regular rate/rhythm, normal heart sounds Gastrointestinal: soft, normal bowel sounds, No tenderness Back Exam: normal inspection, normal range of motion Extremity Exam: normal inspection, pelvis stable Mental Status: alert, oriented x 3, cooperative moving consultant Exam: normal hearing, normal speech, PERRL, No facial asymmetry, No facial droop Coordination/Gait: normal finger to nose, No normal gait Motor/Sensory: pronator drift (L), weak motor strength LUE, weak motor strength LLE DTR: bicep (R): 2+, bicep (L): 3+, knee (R): 2+, knee (L): 3+, ankle (R): 2+, ankle (L): 3+ Skin Exam: normal color SpO2 Interpretation: normal SpO2: 98 O2 Delivery: Room Air - Course EKG Interpreted by Me: RATE ([id number]), Sinus Jose, NORMAL AXIS, NORMAL INTERVALS, Non-specific ST Changes Ordered Tests: Active Orders 24 hr Category Date Time Status Massage Therapy Instructor STAT Care 10/25/21 21:50 Active EKG-ER Only STAT Care 10/25/21 21:49 Active IV Insertion STAT Care 10/25/21 21:49 Active NPO (ED) STAT Care 10/25/21 21:45 Active NPO (ED) STAT Care 10/25/21 21:50 Active Oxygen-ED Only Nasal Cannula 2 lpm Care 10/25/21 22:14 Active Pulse Oximetry (ED) STAT Care 10/25/21 21:49 Active Consult Tele-Health [Tele-Health Consult] ROUTINE Cons 10/25/21 23:12 Active CHEST 1 VIEW (PORTABLE) Stat Exams 10/25/21 22:36 Taken HEAD WITHOUT CONTRAST [CT] Stat Exams 10/25/21 22:00 Taken CBC W DIFF Stat Lab 10/25/21 22:15 Completed CK-Creatinine Phosphokinase Stat Lab 10/25/21 22:15 Completed CMP Stat Lab 10/25/21 22:15 Completed NT PRO BNP Stat Lab 10/25/21 22:15 Completed PROTIME WITH INR Stat Lab 10/25/21 22:15 Completed TROPONIN Q3H Lab 10/25/21 22:15 Completed TROPONIN Q3H Lab 10/26/21 01:15 Ordered TROPONIN Q3H Lab 10/26/21 04:15 Ordered TROPONIN Q3H Lab 10/26/21 07:15 Ordered TROPONIN Q3H Lab 10/26/21 10:15 Ordered UA W/RFX UR CULTURE Stat Lab 10/25/21 21:51 Ordered Medication Summary Discontinued Medications Generic Name Dose Route Start Last Admin Trade Name Anni PRN Reason Stop Dose Admin Aspirin Confirm 10/25/21 23:23 Aspirin 81 Mg Tab.Chew Administered 10/25/21 23:24 Dose 324 mg .ROUTE .STK-MED ONE Aspirin 324 mg 10/25/21 23:24 10/25/21 23:27 Aspirin 81 Mg Tab.Chew PO 10/25/21 23:25 324 mg STAT ONE Administration Atorvastatin Calcium Confirm 10/25/21 23:22 Atorvastatin Calcium 40 Mg Tablet Administered 10/25/21 23:23 Dose 80 mg .ROUTE .STK-MED ONE Atorvastatin Calcium 80 mg 10/25/21 23:24 10/25/21 23:26 Atorvastatin Calcium 40 Mg Tablet PO 10/25/21 23:25 80 mg STAT STA Administration Clopidogrel Bisulfate Confirm 10/25/21 23:23 Clopidogrel Bisulfate 75 Mg Tablet Administered 10/25/21 23:24 Dose 75 mg .ROUTE .STK-MED ONE Clopidogrel Bisulfate 75 mg 10/25/21 23:24 10/25/21 23:27 Clopidogrel Bisulfate 75 Mg Tablet PO 10/25/21 23:25 75 mg STAT ONE Administration Sodium Chloride 1,000 mls @ 999 mls/hr 10/25/21 22:14 10/25/21 23:15 Sodium Chloride 0.9% 1000 Ml IV 10/25/21 23:14 Infused .Q1H1M STA Infusion Sodium Chloride Confirm 10/25/21 22:15 Sodium Chloride 0.9% 1000 Ml Administered 10/25/21 22:16 Dose 1,000 mls @ ud .ROUTE .STK-MED ONE Lab/Rad Data: Laboratory Result Diagrams 10/25/21 22:15 10/25/21 22:15 Laboratory Results 10/25/21 10/25/21 10/25/21 Range/Units 22:15 22:15 22:15 WBC (4.0-10.5) K/mm3 RBC (4.1-5.4) M/mm3 Hgb (12.0-16.0) gm/dl Hct (35-47) % MCV (78-100) fl MCH (26-32) pg MCHC (32-36) g/dl RDW (11.5-14.0) % Plt Count (150-450) K/mm3 MPV (7.5-11.0) fl Gran % (36.0-66.0) % Eos # (Auto) (0-0.5) Absolute Lymphs (auto) (1.0-4.6) Absolute Monos (auto) (0.0-1.3) Lymphocytes % (24.0-44.0) % Monocytes % (0.0-12.0) % Eosinophils % (0.00-5.0) % Basophils % (0.0-0.4) % Absolute Granulocytes (1.4-6.9) Basophils # (0-0.4) PT 10.9 (9.4-12.5) SECONDS INR 0.92 (0.8-3.0) Sodium (137-145) mmol/L Potassium (3.5-5.1) mmol/L Chloride (98-107) mmol/L Carbon Dioxide (22-30) mmol/L Anion Gap (5-15) MEQ/L BUN (7-17) mg/dL Creatinine (0.52-1.04) mg/dL Estimated GFR ML/MIN Glucose (74-106) mg/dL Calcium (8.4-10.2) mg/dL Total Bilirubin (0.2-1.3) mg/dL AST (14-36) U/L ALT (0-35) U/L Alkaline Phosphatase (38-126) U/L Creatine Kinase 23 L (30-135) U/L Troponin I < 0.012 (0.000-0.034) ng/mL NT-Pro-B Natriuret Pep 212 (0-900) pg/mL Serum Total Protein (6.3-8.2) g/dL Albumin (3.5-5.0) g/dL 10/25/21 10/25/21 Range/Units 22:15 22:15 WBC 17.6 H (4.0-10.5) K/mm3 RBC 4.65 (4.1-5.4) M/mm3 Hgb 13.9 (12.0-16.0) gm/dl Hct 44.0 (35-47) % MCV 94.6 (78-100) fl MCH 29.9 (26-32) pg MCHC 31.6 L (32-36) g/dl RDW 14.2 H (11.5-14.0) % Plt Count 316 (150-450) K/mm3 MPV 9.9 (7.5-11.0) fl Gran % 81.8 H (36.0-66.0) % Eos # (Auto) 0.10 (0-0.5) Absolute Lymphs (auto) 1.82 (1.0-4.6) Absolute Monos (auto) 1.24 (0.0-1.3) Lymphocytes % 10.3 L (24.0-44.0) % Monocytes % 7.0 (0.0-12.0) % Eosinophils % 0.6 (0.00-5.0) % Basophils % 0.3 (0.0-0.4) % Absolute Granulocytes 14.40 H (1.4-6.9) Basophils # 0.05 (0-0.4) PT (9.4-12.5) SECONDS INR (0.8-3.0) Sodium 137 (137-145) mmol/L Potassium 4.6 (3.5-5.1) mmol/L Chloride 103 (98-107) mmol/L Carbon Dioxide 27 (22-30) mmol/L Anion Gap 11.0 (5-15) MEQ/L BUN 22 H (7-17) mg/dL Creatinine 1.13 H (0.52-1.04) mg/dL Estimated GFR 50.0 ML/MIN Glucose 152 H (74-106) mg/dL Calcium 9.4 (8.4-10.2) mg/dL Total Bilirubin 0.40 (0.2-1.3) mg/dL AST 18 (14-36) U/L ALT 12 (0-35) U/L Alkaline Phosphatase 84 (38-126) U/L Creatine Kinase (30-135) U/L Troponin I (0.000-0.034) ng/mL NT-Pro-B Natriuret Pep (0-900) pg/mL Serum Total Protein 7.0 (6.3-8.2) g/dL Albumin 4.0 (3.5-5.0) g/dL - Progress Progress: improved, re-examined Progress Note: 10/26/21 00:01 76 years old is evaluated for left-sided weakness. She is made stroke activated, from CT head is obtained. Patient is already out of the window for TPA. CT head without contrast is negative for any acute findings. Has white count of 17 and grossly unremarkable chemistries except for mildly elevated creatinine. Chest x-ray did not show any acute findings reviewed by me and does have chronic changes. Official report is pending. Tele stroke consult is obtained who has seen patient and her symptoms are much more improved, recommended 81 mg aspirin along with Plavix 75 mg for 21 days and then single therapy and also starting her on Lipitor and other stroke work-up including echo and MRIs/MRAs and lab work. Neurology does not think patient is a candidate for any kind of interventional neurology work-up and can be admitted here. I have discussed with Dr. Boyer, reviewed history, work-up and patient is accepted for admission. Discussed with .: Jere, Other Will see patient in: hospital (observation) Counseled pt/family regarding: lab results, diagnosis, rad results, smoking cessation - Departure Departure Disposition: Observation Clinical Impression: Stroke Condition: Stable Critical Care Time: No Referrals: [facility]ER [Primary Care Provider] - Follow up/PCP as directed
[2021-10-25 22:34] LABS: INR 0.92 (0.8-3.0); PROTIME 10.9 SECONDS (9.4-12.5)
[2021-10-25 22:40] LABS: BILIRUBIN,TOTAL 0.4 mg/dL (0.2-1.3); Calcium 9.4 mg/dL (8.4-10.2); Creatinine 1 1.13 mg/dL (0.52-1.04); Potassium 4.6 mmol/L (3.5-5.1)
[2021-10-25 22:48] LABS: CK-Creatinine Phosphokinase 23 U/L (30-135); NT PRO BNP 212 pg/mL (0-900)
[2021-10-25] MEDS ORDERED: LIPITOR 40MG ONE (23:22)
[2021-10-25] MEDS ORDERED: PLAVIX 75 MG Tablet ONE (23:23)
[2021-10-25] MEDS ORDERED: BABY ASPIRIN 81 MG CHEW ONE (23:23)
[2021-10-25] MEDS ORDERED: PLAVIX 75 MG Tablet PO ONE (23:24)
[2021-10-25] MEDS ORDERED: BABY ASPIRIN 81 MG CHEW PO ONE (23:24)
[2021-10-25] MEDS ORDERED: LIPITOR 40MG PO STA (23:24)
[2021-10-26 00:53] LABS: INFLUENZA A NEGATIVE (NEGATIVE); INFLUENZA B NEGATIVE (NEGATIVE); RESPIRATORY SYNCTIAL VIRUS NEGATIVE (Negative); SARS-CoV-2 Xpert Express NEGATIVE (NEGATIVE)
[2021-10-26] MEDS ORDERED: DUONEB 0.5-3 MG/3 ml Neb IH PRN (01:51)
[2021-10-26] MEDS ORDERED: TYLENOL 325 MG PO PRN (01:51)
[2021-10-26] MEDS ORDERED: Zofran 4 MG/2 ML VIAL IV PRN (01:51)
[2021-10-26] MEDS ORDERED: VENTOLIN COMMON CANISTER IH PRN (02:49)
[2021-10-26 02:58] LABS: Appearance SLIGHTLY CLOUDY (CLEAR); Bilirubin NEGATIVE (NEGATIVE); Blood SMALL Ery/ul (0-5); Epithelial Cells RARE /HPF (FEW); Glucose NEGATIVE (NEGATIVE); Ketones NEGATIVE (NEGATIVE); Leukocyte Esterase TRACE (NEGATIVE); Mucus SLIGHT /HPF (NEGATIVE); Nitrite NEGATIVE (NEGATIVE); Protein,Urine Dip NEGATIVE (Negative); Specific Gravity 1.019 (1.005-1.025); Urobilinogen NEGATIVE mg/dL (0-1)
[2021-10-26] MEDS: Sodium Chloride 0.9% 1000 ML 1,000 ML IV SCH ×2 (03:03→11:55)
[2021-10-26 05:41] LABS: Absolute Neutrophil Ct (ANC) 10.71 (1.4-6.9); Basophil (Absolute #) 0.03 (0-0.4); Eosinophil % 1.8 % (0.00-5.0); Eosinophil (Absolute #) 0.28 (0-0.5); Hemoglobin 11.9 gm/dl (12.0-16.0); Lymphocytes % 22.9 % (24.0-44.0); Mean Cell Volume 96.3 fl (78-100); Mean Corpuscular Hemoglobin 29.4 pg (26-32); Mean Corpuscular Hgb Concent. 30.5 g/dl (32-36); Mean Platelet Volume 10.2 fl (7.5-11.0); Monocyte (Absolute #) 1.07 (0.0-1.3); Monocytes % 6.8 % (0.0-12.0); Neutrophil % 68.3 % (36.0-66.0); Platelet Count 285 K/mm3 (150-450); Red Blood Count 4.05 M/mm3 (4.1-5.4); Red Cell Distribution Width 14.1 % (11.5-14.0); White Blood Count 15.7 K/mm3 (4.0-10.5)
[2021-10-26 06:42] LABS: ALBUMIN 3.2 g/dL (3.5-5.0); ALKALINE PHOSPHATASE 63 U/L (38-126); ANION GAP 8.4 MEQ/L (5-15); BLOOD UREA NITROGEN 19 mg/dL (7-17); CHLORIDE 110 mmol/L (98-107); Calcium 8.5 mg/dL (8.4-10.2); Carbon Dioxide 22 mmol/L (22-30); Creatinine 1 0.85 mg/dL (0.52-1.04); EST GLOMERULAR FILTRATION RATE > 60.0 ML/MIN; Glucose 92 mg/dL (74-106); SGOT/AST 18 U/L (14-36); SGPT/ALT 7 U/L (0-35); SODIUM 136 mmol/L (137-145); Total Protein 5.9 g/dL (6.3-8.2)
--- NOTE | 2021-10-26 08:44 | XRAY ---
Indication: Left-sided weakness. Stroke. Multiple contiguous axial images obtained through the head without contrast. Comparison: None Age-appropriate global atrophy and mild periventricular degenerative micro-ischemia bilaterally. No acute intracranial hemorrhage, abnormal extra-axial fluid collection, or mass effect. Fourth ventricle is midline without hydrocephalus. Bony calvarium intact. Visualized paranasal sinuses and mastoid air cells are clear. Impression: Nonacute senile brain.
--- NOTE | 2021-10-26 08:44 | XRAY ---
Indication: Left-sided weakness. Stroke. Comparison: October 20, 2021. Portable apical lordotic chest unchanged again demonstrating COPD, tiny left upper lobe calcified granuloma, and minimal left base fibrosis/scarring. Heart not enlarged. Bony thorax intact again with osteopenia and degenerative changes. Impression: Continued nonacute chest with chronic features.
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
[2021-10-26] MEDS ORDERED: LYRICA 100MG PO SCH (10:00)
[2021-10-26] MEDS ORDERED: Wellbutrin SR 150 MG PO SCH (10:00)
[2021-10-26] MEDS ORDERED: PROTONIX 40 MG IV IV SCH (10:00)
[2021-10-26] MEDS ORDERED: Paxil 20 MG PO SCH (10:00)
[2021-10-26] MEDS ORDERED: PLAVIX 75 MG Tablet PO SCH (10:00)
[2021-10-26] MEDS ORDERED: ECOTRIN 81 MG PO SCH (10:00)
[2021-10-26 11:09] LABS: Risk Ratio 4.5; TSH, 3RD Generation 1.15 mIU/L (0.47-4.68)
--- NOTE | 2021-10-26 16:28 | XRAY ---
Indication: Cerebrovascular accident. Conventional contrast enhanced MRA neck performed using 10 cc Dotarem contrast. Comparison: None Left common carotid, carotid bulb, internal carotid, and external carotid arteries are occluded. Right carotid circulation demonstrates minimal eccentric arteriosclerotic disease in the proximal internal carotid artery producing less than 25% stenosis. Remaining visualized common carotid, carotid bulb, and external carotid arteries are normal in MRA appearance. Vertebral arteries are bilaterally symmetric without critical stenosis or obstruction. Impression: 1. Occluded left common carotid, carotid bulb, internal carotid, and external carotid arteries. 2. Remaining MRA neck with contrast exam is negative. Comment: Telephone report will be given to the ordering clinician.
--- NOTE | 2021-10-26 16:29 | XRAY ---
Indication: Cerebral vascular accident. Sagittal, coronal, and axial MRI brain performed without contrast using T1, T2, FLAIR, diffusion, and ADC sequences. Comparison: None Age-appropriate global atrophy and mild periventricular degenerative micro-ischemia signal bilaterally. No acute intracranial hemorrhage, abnormal extra-axial fluid collection, or mass effect. Diffusion images demonstrates a few paramedian petechial restricted signal near the vertex, right greater than left favoring acute micro-ischemia. No large focus of restricted signal. Fourth ventricle is midline without hydrocephalus. 7/8 cranial nerve complex bilaterally symmetric. Signal in the left parasellar internal carotid arteries favoring occlusion versus slow sluggish flow. Normal flow void signal within the remaining major intracerebral circulation. Normal appearing craniocervical junction and sella turcica. Paranasal sinuses are clear. Impression: 1. Atrophy and degenerative microvascular ischemia within normal limits for patient's age. A few paramedian petechial acute micro-ischemia near the vertex. No acute hemorrhage or mass effect. 2. Left parasellar internal carotid artery occlusion versus slow sluggish flow.
--- NOTE | 2021-10-26 16:45 | XRAY ---
Indication: Cerebrovascular accident. Conventional contrast enhanced MRA [place] performed using 10 cc Dotarem contrast. Comparison: None Left internal carotid artery is occluded with tiny reconstitution at the level of the suprasellar segment. Right internal carotid artery is normal in course and caliber supplying the remaining [place]. Normal A1 and M1 branches bilaterally. More distal anterior cerebral, middle cerebral, and anterior communicating arteries are normal in MRA appearance. Posterior communicating arteries not visualized. Posterior circulation demonstrates normal MRA appearance to the basilar artery, left/right posterior cerebral, and left/right superior cerebral arteries. Impression: Occluded left internal carotid artery with tiny reconstitution distally. Remaining [place] is supplied by a patent right internal carotid artery. MRI posterior circulation is negative. Comment: Telephone report given to the ordering clinician, Dr. Boyer at 1635 hrs. on October 26, 2021.
[2021-10-26 20:09] VITALS: BP 127/59; PULSE 75; O2SAT 94
[2021-10-26] MEDS ORDERED: Lyrica 25 MG PO SCH (22:00)
--- NOTE | 2021-10-27 09:02 | XRAY ---
Indication: Stroke. Conventional contrast enhanced CTA neck performed using 100 cc Isovue 370 contrast. Two-dimensional sagittal and coronal reformatted images obtained. Additional 3-dimensional reformatted images obtained using separate workstation. Comparison: None. Visualized aortic arch demonstrates mild scattered arteriosclerotic disease without aneurysm. Normal branching right brachiocephalic, left common carotid, and left subclavian arteries all demonstrating minimal arteriosclerotic calcifications at their origins. Examination of the left carotid circulation demonstrates total occlusion throughout the common carotid, carotid bulb, and internal carotid arteries. Carotid bulb does demonstrate moderate calcified plaquing. External carotid artery is patent but attenuated along its course. Examination of the right carotid circulation demonstrates widely patent common carotid artery. At the level of the bulb, there is very minimal eccentric calcified [place] without critical stenosis/obstruction. Remaining visualized internal carotid and external carotid arteries are normal in CTA appearance. Vertebral arteries are normal in course and caliber with the left slightly larger in caliber. No critical stenosis, obstruction, or AV malformation. Visualized soft tissues are negative for pathologic lymphadenopathy. Thyroid gland enhances homogeneously. Supra and infraglottic airway widely patent. Visualized lung apices demonstrate scattered peripheral fibrosis/scarring bilaterally. Osseous structures demineralized with mild/moderate C4-C7 degenerative spondylosis and 3 mm C4 spondylolisthesis. Patient is edentulous. Impression: 1. Occlusion of the left common carotid, carotid bulb, and internal carotid arteries. Patent attenuated external carotid artery. 2. Widely patent right carotid circulation with very minimal calcified plaquing at the level of bulb. 3. Normal CTA vertebral arteries.
--- NOTE | 2021-10-27 09:03 | XRAY ---
Indication: Stroke. Conventional contrast enhanced CTA head performed using 100 cc Isovue 370 contrast. Two-dimensional sagittal and coronal reformatted images obtained. Additional 3-dimensional reformatted images obtained using separate workstation. Comparison: None. Entire visualized left internal carotid artery is occluded. Right internal carotid artery demonstrates very minimal scattered calcified plaquing involving the parasellar segment without critical stenosis/obstruction. Normal right carotid terminus with normal branching A1 and M1 segments. More distal left/right anterior cerebral, left/right middle cerebral, anterior communicating, and posterior communicating arteries are normal in CTA appearance. Posterior circulation demonstrates widely patent distal vertebral arteries with the left slightly larger in caliber. Normal branching left/right posterior inferior cerebellar arteries. Remaining basilar, left/right posterior cerebral, left/right superior cerebellar, and left/right posterior inferior cerebellar arteries are normal in CTA appearance. Venous drainage/sinuses are unremarkable. Remaining whole brain is negative for abnormal enhancing intra or extra-axial mass. Impression: 1. Occluded left internal carotid artery. Left anterior cerebral and left middle cerebral arteries are supplied via patent [place]. 2. Very minimal calcifications in right internal carotid artery without critical stenosis/obstruction. 3. Normal CTA posterior circulation.
[2021-10-27] MEDS ORDERED: BABY ASPIRIN 81 MG CHEW PO SCH (10:00)
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
--- NOTE | 2021-10-27 12:59 | ECHO ---
DATE OF PROCEDURE: 10/26/2021 CLINICAL INFORMATION: CVA. The M-mode 2D, and Doppler echocardiogram including color flow Doppler shows the left ventricle is normal in size at 3.9 cm. There is no thrombus present. The septal wall thickness is 1.1 cm. The left ventricular posterior wall thickness is 1.3 cm. The mitral valve E/A inflow velocity ratio is 0.57 consistent with possible impaired left ventricular relaxation. The right ventricle is not well visualized. The left atrium is normal in size at 3.8 cm. The interatrial septum is intact. The right atrium is normal in size. The aortic valve opens well. There is mild aortic regurgitation. There is mitral valve leaflet thickening associated with mild mitral regurgitation. There is mild tricuspid regurgitation. The right ventricular systolic pressure is calculated to be 25 mm of Mercury. The pulmonic valve is not well visualized. The aortic root is 2.9 cm. There is no pericardial effusion present. IMPRESSION: 1) NO THROMBUS IS NOTED. 2) NORMAL CONTRACTILITY OF THE LEFT VENTRICLE. 3) MILD CONCENTRIC LEFT VENTRICULAR HYPERTROPHY. 4) POSSIBLE IMPAIRED LEFT VENTRICULAR RELAXATION. 5) MILD AORTIC REGURGITATION. 6) MILD MITRAL REGURGITATION. 7) MILD TRICUSPID REGURGITATION. 8) NORMAL RIGHT VENTRICULAR SYSTOLIC PRESSURE.
== END 2021-10-26 20:59 | disposition home or self-care (01) ==
LOC: ED 21:33 → MED SURG 10-26 01:36
PROVIDERS: ADMIT Family Medicine; ATTEND Family Medicine
DX: I63.9 Cerebral infarction, unspecified (principal); R07.9 Chest pain, unspecified; J44.9 Chronic obstructive pulmonary disease, unspecified; T74.91XA Unspecified adult maltreatment, confirmed, initial encounter; W18.30XA Fall on same level, unspecified, initial encounter; F41.9 Anxiety disorder, unspecified; Z72.0 Tobacco use; Z79.899 Other long term (current) drug therapy; Z79.01 Long term (current) use of anticoagulants; Z20.828 Contact with and (suspected) exposure to other viral communicable diseases
CPT/HCPCS: 0241U; 36000; 36415; 70450; 70496; 70498; 70544; 70548; 70553; 71045; 80053; 80061; 81001; 82550; 83036; 83721; 83880; 84443; 84484; 85025; 85610; 93005; 93041; 93306; 94760; 96360; 97161; 99291; 93268; 99285; A9270-GY; G0378

== ENCOUNTER 2022-10-04 15:07 | Day surgery (SDC) | payer MEDICARE ==
[2022-10-04] MEDS ORDERED: Depo-Medrol 40 MG/ML IM ONE (15:08)
[2022-10-04] MEDS ORDERED: LIDOCAINE HCL 1% 50 MG/5 ML VL PF IJ ONE (15:08)
[2022-10-04] MEDS ORDERED: BUPIVACAINE 0.5% VIAL IJ ONE (15:08)
--- NOTE | 2022-10-04 19:52 | XRAY ---
Indication: Right SI joint injection. Intraoperative fluoroscopy provided for 9 seconds. 2 digital spot images submitted for interpretation demonstrates posterior needle tip projecting over the right SI joint. Correlate with intraoperative findings/report.
--- NOTE | 2022-10-05 09:05 | XRAY ---
9 seconds fluoroscopy time in surgery for injection of the right SI joint.
== END 2022-10-04 18:15 | disposition home or self-care (01) ==
LOC: SDC-PAIN 15:07
PROVIDERS: ATTEND Psychiatry & Neurology Pain Medicine
DX: M46.1 Sacroiliitis, not elsewhere classified (principal); Z79.899 Other long term (current) drug therapy
CPT/HCPCS: 27096; 72170; 77002; G0260; J1030; J2001

== ENCOUNTER 2023-06-28 15:00 | Emergency (ER) | payer MEDICARE ==
[2023-06-28 15:34] VITALS: TEMP 97.5
[2023-06-28] MEDS ORDERED: Zofran 4 MG/2 ML VIAL IV ONE (16:01)
[2023-06-28] MEDS ORDERED: MORPHINE SULFATE 4 MG INJ IV ONE (16:01)
[2023-06-28] MEDS ORDERED: Sodium Chloride 0.9% 500 ML 500 ML IV ONE ×2 (16:02→16:17)
--- NOTE | 2023-06-28 16:05 | ERPHSYRPT ---
- History of Present Illness Time Seen by Provider: 06/28/23 15:06 Historian: patient, EMS Exam Limitations: no limitations Patient Subjective Stated Complaint: pt states that she had a sharp pain in her stomach Triage Nursing Assessment: pt came into the er; pt is axo x4; c/o abd pain; pt states pain to RLQ; abd is flat, soft, nontender; active bowel sounds in all quads; pt c/o nausea; pt denies vomiting, diarrhea; mucus membranes pink, moist; skin PDW; no respiratory distress; vitals wnl Physician History: 78 years old female presented to the ER with chief complaint of right-sided abdominal pain for the last 2 to 3 days with progressive worsening. The patient reports moderate intensity sharp pain with associated nausea and dry heaving. Denies any constipation diarrhea. No urinary complaints. No fever or chills reported. Abdominal exam is soft with minimal tenderness on the right side. No guarding or rebound tenderness. Vital stable. We will give symptomatic treatment with morphine and fluids. Will obtain acute abdomen work-up including CT abdomen pelvis without contrast. Allergies/Adverse Reactions: No Known Drug Allergies Allergy (Verified 06/28/23 15:08) Home Medications: Paroxetine HCl 20 mg [Paxil 20 MG] 40 mg PO DAILY 12/24/17 [History] Donepezil HCl 10 mg [Aricept 10 MG] 10 mg PO DAILY 06/28/23 [History] Hx Tetanus, Diphtheria Vaccination/Date Given: No Hx Influenza Vaccination/Date Given: No Hx Pneumococcal Vaccination/Date Given: No Travel Risk - International Travel Have you traveled outside of the country in past 3 weeks: No - Coronavirus Screening Are you exhibiting any of the following symptoms?: Yes Symptoms: Vomiting/Diarrhea Close contact with a COVID-19 positive Pt in past 14-21 Days: No - Vaccine Status Have you recieved a Covid-19 vaccination: Yes It Compliance Analyst: [id number] - Vaccination Dates Date of 2cond Vaccination (if applicable): 02/2021 - Review of Systems Constitutional: No Symptoms Ears, Nose, & Throat: No Symptoms Respiratory: No Symptoms Cardiac: No Symptoms Abdominal/Gastrointestinal: Abdominal Pain, Nausea Genitourinary Symptoms: No Symptoms Musculoskeletal: Arthralgias Skin: No Symptoms Neurological: No Symptoms Endocrine: No Symptoms Hematologic/Lymphatic: No Symptoms Immunological/Allergic: No Symptoms - Past Medical History Pertinent Past Medical History: Yes Neurological History: Stroke ENT History: No Pertinent History Cardiac History: No Pertinent History Respiratory History: COPD Endocrine Medical History: No Pertinent History Musculoskeletal History: Arthritis GI Medical History: Irritable Bowel History: No Pertinent History Psycho-Social History: Depression Female Reproductive Disorders: Breast Cancer Other Medical History: rt breast cancer 2007 - Past Surgical History Past Surgical History: Yes Neuro Surgical History: No Pertinent History Cardiac: No Pertinent History Respiratory: No Pertinent History Gastrointestinal: No Pertinent History Genitourinary: No Pertinent History Musculoskeletal: No Pertinent History Female Surgical History: Lumpectomy Other Surgical History: breast cancer. right breast - Social History Smoking Status: Light tobacco smoker How long have you smoked: 30 yrs Exposure to second hand smoke: Yes Drug Use: none Patient Lives Alone: No - Nursing Vital Signs Nursing Vital Signs: Initial Vital Signs Temperature 97.5 F 06/28/23 15:01 Pulse Rate 69 06/28/23 15:01 Respiratory Rate 18 06/28/23 15:01 Blood Pressure 131/69 06/28/23 15:01 O2 Sat by Pulse Oximetry 98 06/28/23 15:01 Pain Scale Pain Intensity 2 - Physical Exam General Appearance: no apparent distress, alert Eye Exam: PERRL/EOMI Ears, Nose, Throat Exam: normal ENT inspection Neck Exam: normal inspection, supple, full range of motion Respiratory Exam: normal breath sounds, lungs clear Cardiovascular Exam: regular rate/rhythm, normal heart sounds Gastrointestinal/Abdomen Exam: soft, normal bowel sounds, tenderness (Mild tenderness to deep palpation in the right lower quadrant/right flank) Back Exam: normal inspection Extremity Exam: normal inspection, normal range of motion Neurologic Exam: alert, oriented x 3, cooperative Skin Exam: normal color SpO2 Interpretation: normal SpO2: 98 O2 Delivery: Room Air Ordered Tests: Active Orders 24 hr Category Date Time Status IV Insertion STAT Care 06/28/23 16:01 Active NPO (ED) STAT Care 06/28/23 16:01 Active ABDOMEN AND PELVIS W/0 CONTRAS [CT] Stat Exams 06/28/23 16:01 Completed CBC W DIFF Stat Lab 06/28/23 16:20 Completed CMP Stat Lab 06/28/23 16:20 Completed LIPASE Stat Lab 06/28/23 16:20 Completed Lactic Acid Stat Lab 06/28/23 16:01 Completed Lactic Acid Stat Lab 06/28/23 18:24 Stop Req UA W/RFX UR CULTURE Stat Lab 06/28/23 17:42 Completed Medication Summary Discontinued Medications Generic Name Dose Route Start Last Admin Trade Name Anni PRN Reason Stop Dose Admin Sodium Chloride 500 mls @ 500 mls/hr 06/28/23 16:02 06/28/23 17:24 Sodium Chloride 0.9% 500 Ml IV 06/28/23 17:01 Infused .Q1H ONE Infusion Sodium Chloride Confirm 06/28/23 16:17 Sodium Chloride 0.9% 500 Ml Administered 06/28/23 16:18 Dose 500 mls @ ud IV .STK-MED ONE Morphine Sulfate 4 mg 06/28/23 16:01 06/28/23 16:21 Morphine Sulfate 4 Mg/Ml Injection IV 06/28/23 16:02 4 mg STAT ONE Administration Morphine Sulfate Confirm 06/28/23 16:17 Morphine Sulfate 4 Mg/Ml Injection Administered 06/28/23 16:18 Dose 4 mg .ROUTE .STK-MED ONE Ondansetron HCl 4 mg 06/28/23 16:01 06/28/23 16:21 Ondansetron Hcl 4 Mg/2 Ml Vial IV 06/28/23 16:02 4 mg STAT ONE Administration Ondansetron HCl Confirm 06/28/23 16:17 Ondansetron Hcl 4 Mg/2 Ml Vial Administered 06/28/23 16:18 Dose 4 mg .ROUTE .STK-MED ONE Lab/Rad Data: Laboratory Result Diagrams 06/28/23 16:20 06/28/23 16:20 Laboratory Results 06/28/23 06/28/23 06/28/23 Range/Units 17:42 16:20 16:20 WBC 17.9 H (4.0-10.5) x10^3/uL RBC 4.55 (4.1-5.4) x10^6/uL Hgb 13.0 (12.0-16.0) g/dL Hct 42.7 (35-47) % MCV 93.8 (78-100) fL MCH 28.6 (26-32) pg MCHC 30.4 L (32-36) g/dL RDW 13.6 (11.5-14.0) % Plt Count 323 (150-450) x10^3/uL MPV 10.2 (7.5-11.0) fL Gran % 84.8 H (36.0-66.0) % Immature Gran % (Auto) 0.6 H (0.00-0.4) % Nucleat RBC Rel Count 0.0 (0.00-0.1) % Eos # (Auto) 0.12 (0-0.5) x10^3/uL Immature Gran # (Auto) 0.10 H (0.00-0.03) x10^3u/L Absolute Lymphs (auto) 1.38 (1.0-4.6) x10^3/uL Absolute Monos (auto) 1.01 (0.0-1.3) x10^3/uL Absolute Nucleated RBC 0.00 (0.00-0.01) x10^3u/L Lymphocytes % 7.7 L (24.0-44.0) % Monocytes % 5.6 (0.0-12.0) % Eosinophils % 0.7 (0.00-5.0) % Basophils % 0.6 (0.0-0.4) % Absolute Granulocytes 15.17 H (1.4-6.9) x10^3/uL Basophils # 0.11 (0-0.4) x10^3/uL Sodium 140 (137-145) mmol/L Potassium 4.5 (3.5-5.1) mmol/L Chloride 106 (98-107) mmol/L Carbon Dioxide 27 (22-30) mmol/L Anion Gap 12.0 (5-15) MEQ/L BUN 16 (7-17) mg/dL Creatinine 0.96 (0.52-1.04) mg/dL Estimated GFR > 60.0 ML/MIN Glucose 164 H (74-106) mg/dL Lactic Acid (0.4-2.0) Calcium 9.1 (8.4-10.2) mg/dL Total Bilirubin 0.20 (0.2-1.3) mg/dL AST 20 (14-36) U/L ALT 15 (0-35) U/L Alkaline Phosphatase 82 (38-126) U/L Serum Total Protein 7.0 (6.3-8.2) g/dL Albumin 4.0 (3.5-5.0) g/dL Lipase 90 (23-300) U/L Urine Color Dark Yellow A (Yellow) Urine Appearance Cloudy A (Clear) Urine pH 5.5 (4.6-8.0) Ur Specific Makinen 1.025 (1.005-1.030) Urine Protein 30 (Negative) Urine Glucose (UA) Negative (Negative) mg/dL Urine Ketones Trace A (Negative) Urine Blood Moderate A (Negative) Urine Nitrite Negative (Negative) Urine Bilirubin Negative (Negative) Urine Urobilinogen 1.0 A (0.2) mg/dL Ur Leukocyte Esterase Trace A (Negative) U Hyaline Cast (Auto) 0-2 (0-2) /LPF Urine Microscopic RBC 3-5 (0-5) /HPF Urine Microscopic WBC 0-2 (0-5) /HPF Ur Epithelial Cells Rare (None Seen) /HPF Calcium Oxalate Crystal 6-10 A (None Seen) /HPF Urine Bacteria Rare A (None Seen) /HPF Urine Culture Reflexed NO (NO) 06/28/23 Range/Units 16:01 WBC (4.0-10.5) x10^3/uL RBC (4.1-5.4) x10^6/uL Hgb (12.0-16.0) g/dL Hct (35-47) % MCV (78-100) fL MCH (26-32) pg MCHC (32-36) g/dL RDW (11.5-14.0) % Plt Count (150-450) x10^3/uL MPV (7.5-11.0) fL Gran % (36.0-66.0) % Immature Gran % (Auto) (0.00-0.4) % Nucleat RBC Rel Count (0.00-0.1) % Eos # (Auto) (0-0.5) x10^3/uL Immature Gran # (Auto) (0.00-0.03) x10^3u/L Absolute Lymphs (auto) (1.0-4.6) x10^3/uL Absolute Monos (auto) (0.0-1.3) x10^3/uL Absolute Nucleated RBC (0.00-0.01) x10^3u/L Lymphocytes % (24.0-44.0) % Monocytes % (0.0-12.0) % Eosinophils % (0.00-5.0) % Basophils % (0.0-0.4) % Absolute Granulocytes (1.4-6.9) x10^3/uL Basophils # (0-0.4) x10^3/uL Sodium (137-145) mmol/L Potassium (3.5-5.1) mmol/L Chloride (98-107) mmol/L Carbon Dioxide (22-30) mmol/L Anion Gap (5-15) MEQ/L BUN (7-17) mg/dL Creatinine (0.52-1.04) mg/dL Estimated GFR ML/MIN Glucose (74-106) mg/dL Lactic Acid 2.1 H (0.4-2.0) Calcium (8.4-10.2) mg/dL Total Bilirubin (0.2-1.3) mg/dL AST (14-36) U/L ALT (0-35) U/L Alkaline Phosphatase (38-126) U/L Serum Total Protein (6.3-8.2) g/dL Albumin (3.5-5.0) g/dL Lipase (23-300) U/L Urine Color (Yellow) Urine Appearance (Clear) Urine pH (4.6-8.0) Ur Specific Makinen (1.005-1.030) Urine Protein (Negative) Urine Glucose (UA) (Negative) mg/dL Urine Ketones (Negative) Urine Blood (Negative) Urine Nitrite (Negative) Urine Bilirubin (Negative) Urine Urobilinogen (0.2) mg/dL Ur Leukocyte Esterase (Negative) U Hyaline Cast (Auto) (0-2) /LPF Urine Microscopic RBC (0-5) /HPF Urine Microscopic WBC (0-5) /HPF Ur Epithelial Cells (None Seen) /HPF Calcium Oxalate Crystal (None Seen) /HPF Urine Bacteria (None Seen) /HPF Urine Culture Reflexed (NO) - Progress Progress: improved, re-examined Progress Note: 06/28/23 16:04 78 years old female presented to the ER with chief complaint of right-sided abdominal pain for the last 2 to 3 days with progressive worsening. The patient reports moderate intensity sharp pain with associated nausea and dry heaving. Denies any constipation diarrhea. No urinary complaints. No fever or chills reported. Abdominal exam is soft with minimal tenderness on the right side. No guarding or rebound tenderness. Vital stable. We will give symptomatic treatment with morphine and fluids. Will obtain acute abdomen work-up including CT abdomen pelvis without contrast. 06/28/23 19:14 Patient is feeling much better on reevaluation after pain medication. No peritoneal signs. Work-up showed white count of 17, fairly unremarkable chemistries, lactate of 2.1. Given fluids. No UTI. Obtained CT abdomen pelvis which is negative for any acute abdominal pelvic findings. No obvious source of elevated white count. Patient is nontoxic. Patient does have a hiatal hernia. Patient later on reports she is having vomiting at times after eating, not taking any PPI, will start her on omeprazole. I do not know the exact cause of her pain, could be some element of gastroenteritis as patient does report having some diarrhea at times as well but have ruled out all the major emergencies. I have discussed the results of work-up with patient and , need for outpatient follow-up who understand and agree with it. 06/28/23 19:25 Counseled pt/family regarding: lab results, diagnosis, rad results, smoking cessation Medical Desision Making - Independent Historian Additional History obtained from: Spouse - Diagnostic Testing Diagnostic test were ordered, analyzed, and reviewed by me: Yes Radiological Interpretation: Reviewed by me - Risk of complications The pt has a mod risk of morbidity or mortality based on: Need for prescription drug management - Departure Departure Disposition: Home Clinical Impression: Right sided abdominal pain, Hiatal hernia, Leukocytosis Condition: Stable Critical Care Time: No Referrals: [facility] [NON-STAFF PHY W/O PRIVILEGES] - Follow up with PCP 1 day Instructions: Abdominal pain Additional Instructions: Take Tylenol as needed. Follow-up with primary care for reevaluation and may need referral for GI for further evaluation with scopes. Also need recheck of your white blood cell count. Return to ER for intractable abdominal pain/vomi ting/diarrhea/fever chills etc. Prescriptions: Omeprazole 40 mg PO DAILY #30 cap
[2023-06-28] MEDS ORDERED: Zofran 4 MG/2 ML VIAL ONE (16:17)
[2023-06-28] MEDS ORDERED: MORPHINE SULFATE 4 MG INJ ONE (16:17)
[2023-06-28 16:29] LABS: Absolute Neutrophil Ct (ANC) 15.17 x10^3/uL (1.4-6.9); BASOPHIL % 0.6 % (0.0-0.4); Basophil (Absolute #) 0.11 x10^3/uL (0-0.4); Eosinophil % 0.7 % (0.00-5.0); Eosinophil (Absolute #) 0.12 x10^3/uL (0-0.5); Hematocrit 42.7 % (35-47); IMMATURE GRAN % 0.6 % (0.00-0.4); Lymphocyte (Absolute #) 1.38 x10^3/uL (1.0-4.6); Lymphocytes % 7.7 % (24.0-44.0); Mean Cell Volume 93.8 fL (78-100); Mean Corpuscular Hemoglobin 28.6 pg (26-32); Mean Corpuscular Hgb Concent. 30.4 g/dL (32-36); Mean Platelet Volume 10.2 fL (7.5-11.0); Monocyte (Absolute #) 1.01 x10^3/uL (0.0-1.3); Monocytes % 5.6 % (0.0-12.0); Neutrophil % 84.8 % (36.0-66.0); Platelet Count 323 x10^3/uL (150-450); Red Blood Count 4.55 x10^6/uL (4.1-5.4); Red Cell Distribution Width 13.6 % (11.5-14.0); White Blood Count 17.9 x10^3/uL (4.0-10.5)
[2023-06-28 16:42] LABS: ALKALINE PHOSPHATASE 82 U/L (38-126); BLOOD UREA NITROGEN 16 mg/dL (7-17); CHLORIDE 106 mmol/L (98-107); Calcium 9.1 mg/dL (8.4-10.2); Carbon Dioxide 27 mmol/L (22-30); Creatinine 1 0.96 mg/dL (0.52-1.04); EST GLOMERULAR FILTRATION RATE > 60.0 ML/MIN; Glucose 164 mg/dL (74-106); LIPASE 90 U/L (23-300); Potassium 4.5 mmol/L (3.5-5.1); SGOT/AST 20 U/L (14-36); SGPT/ALT 15 U/L (0-35); SODIUM 140 mmol/L (137-145)
--- NOTE | 2023-06-28 16:45 | XRAY ---
Indication: Right abdomen pain. Multiple contiguous images obtained through the abdomen and pelvis without contrast. Comparison: May 10, 2022 Lung bases again demonstrates pulmonary emphysema with scattered fibrosis/scarring. No infiltrate or effusion. Heart not enlarged. New small hiatal hernia. Noncontrasted stomach and bowel loops nonobstructed. Appendix not visualized. Again scattered colonic diverticulosis without diverticulitis, nonobstructing left renal punctate calculus, and small right lower renal cyst. No free fluid/air. Remaining liver, gallbladder, pancreas, spleen, adrenal glands, kidneys, ureters, bladder, and uterus are unremarkable for noncontrast exam. Again moderate scattered aortoiliac calcifications. New distal AAA measuring 3.1 x 3.0 cm in greatest axial dimension. Osseous structures again demonstrates osteopenia, mild multilevel degenerative changes throughout spine, and remote L1 compression fracture. Impression: 1. New small hiatal hernia. 2. Again scattered arteriosclerotic disease with new distal AAA. 3. Chronic findings including pulmonary emphysema with fibrosis/scarring, diffuse colonic diverticulosis, nonobstructing left renal punctate, right renal cyst, and chronic bony findings.
[2023-06-28 18:18] VITALS: BP 128/66; PULSE 78; RESP 20
[2023-06-28 18:55] LABS: Appearance Cloudy (Clear); Bacteria Rare /HPF (None Seen); Bilirubin Negative (Negative); Blood Moderate (Negative); Epithelial Cells Rare /HPF (None Seen); Glucose, Urine Negative (Negative); Ketones Trace (Negative); Leukocyte Esterase Trace (Negative); Nitrite Negative (Negative); Ph 5.5 (4.6-8.0); Protein,Urine Dip 30 (Negative); Specific Gravity 1.025 (1.005-1.030); WBC 0-2 /HPF (0-5)
[2023-06-28 18:56] LABS: ADD URINE CULTURE? NO (NO); Hyaline Casts 0-2 /LPF (0-2)
[2023-06-28 19:23] VITALS: O2SAT 98
== END 2023-06-28 19:40 | disposition home or self-care (01) ==
LOC: ED 15:00
DX: K44.9 Diaphragmatic hernia without obstruction or gangrene (principal); R10.11 Right upper quadrant pain; R10.31 Right lower quadrant pain; D72.829 Elevated white blood cell count, unspecified; R11.0 Nausea; Z79.899 Other long term (current) drug therapy; Z72.0 Tobacco use
CPT/HCPCS: 36000; 36415; 74176; 80053; 81001; 83605; 83690; 85025; 96374; 96375; 99284; J2270; J2405

== ENCOUNTER 2024-04-29 16:54 | Emergency (ER) | payer MEDICARE, OTHER ==
[2024-04-29 17:04] VITALS: TEMP 97.1
[2024-04-29 17:17] LABS: Absolute Neutrophil Ct (ANC) 18.98 x10^3/uL (1.56-6.13); BASOPHIL % 0.4 % (0.1-1.2); Basophil (Absolute #) 0.09 x10^3/uL (0.01-0.08); Eosinophil % 0.5 % (0.7-5.8); Eosinophil (Absolute #) 0.11 x10^3/uL (0.04-0.36); Hematocrit 43.3 % (34.1-44.9); IMMATURE GRAN % 0.4 % (0.001-0.429); Lymphocyte (Absolute #) 2.09 x10^3/uL (1.18-3.74); Lymphocytes % 9.2 % (19.3-51.7); Mean Corpuscular Hemoglobin 29.4 pg (25.6-32.2); Mean Corpuscular Hgb Concent. 32.3 g/dL (32.2-35.5); Monocyte (Absolute #) 1.44 x10^3/uL (0.24-0.86); Monocytes % 6.3 % (4.7-12.5); Neutrophil % 83.2 % (34.0-71.1); Platelet Count 277 x10^3/uL (182-369); Red Blood Count 4.76 x10^6/uL (3.93-5.22); White Blood Count 22.8 x10^3/uL (3.98-10.04)
[2024-04-29] MEDS ORDERED: Sodium Chloride 0.9% 1000 ML 1,000 ML ONE (17:25)
[2024-04-29] MEDS: Sodium Chloride 0.9% 1000 ML 1,000 ML IV SCH (17:28)
[2024-04-29 17:36] LABS: ALBUMIN 4.1 g/dL (3.5-5.0); ANION GAP 16.2 MEQ/L (5-15); BILIRUBIN,TOTAL 0.4 mg/dL (0.2-1.3); Calcium 9.5 mg/dL (8.4-10.2); Creatinine 1 1.21 mg/dL (0.52-1.04); EST GLOMERULAR FILTRATION RATE 46.2 ML/MIN; Potassium 3.8 mmol/L (3.5-5.1); Total Protein 7.3 g/dL (6.3-8.2)
--- NOTE | 2024-04-29 17:37 | ERPHSYRPT ---
- History of Present Illness Time Seen by Provider: 04/29/24 17:10 Source: patient Exam Limitations: no limitations Patient Subjective Stated Complaint: Pt states "I fell and hurt my arm." Triage Nursing Assessment: PT presented alert and oriented X 3, skin pwd. PT able to speak in clear full sentences. PT has deformity noted to right humerous CSM X 4. has not eaten much in a day or so. 1300 -coffee Physician History: 79-year-old female presents to our ED via EMS for evaluation and treatment of a right humerus fracture. Patient states she was in her home ambulating in her bathroom when she lost her balance and fell. Patient fell onto her right humerus. Upon arrival to our ED patient had a right upper extremity splint. Patient's right humerus is tenting. However the extremities neurovascular intact distally compartments are soft cap refill less than 2 seconds. No other injuries reported. No BHT or LOC. No neck pain cervical spine cleared clinically. Pain described as an ache that is localized. Pain worse with movement palpation of her right upper extremity. Patient otherwise voices no other complaints or concerns at this time. Patient received 100 of fentanyl for Zofran and route to our ED Portions of this note were created with voice recognition technology. There may be grammatical, spelling, punctuation or sound alike errors Timing/Duration: today Severity: moderate Modifying Factors: Improves With: movement Associated Symptoms: denies symptoms Allergies/Adverse Reactions: No Known Drug Allergies Allergy (Verified 06/28/23 15:08) Home Medications: No Reportable Medications [No Reported Medications] 04/29/24 [History] Hx Tetanus, Diphtheria Vaccination/Date Given: No Hx Influenza Vaccination/Date Given: No Hx Pneumococcal Vaccination/Date Given: No Immunizations Up to Date: No Travel Risk - International Travel Have you traveled outside of the country in past 3 weeks: No - Emerging Infectious Disease Are you exhibiting symptoms associated with any current EIDs: No - Review of Systems Constitutional: No Symptoms, No Fever, No Chills Eyes: No Symptoms Ears, Nose, & Throat: No Symptoms Respiratory: No Symptoms, No Cough, No Dyspnea Cardiac: No Symptoms, No Chest Pain, No Edema, No Syncope Abdominal/Gastrointestinal: No Symptoms, No Abdominal Pain, No Nausea, No Vomiting, No Diarrhea Genitourinary Symptoms: No Symptoms, No Dysuria Musculoskeletal: No Symptoms, No Back Pain, No Neck Pain Skin: No Symptoms, No Rash Neurological: No Symptoms, No Dizziness, No Focal Weakness, No Sensory Changes Psychological: No Symptoms Endocrine: No Symptoms Hematologic/Lymphatic: No Symptoms Immunological/Allergic: No Symptoms All Other Systems: Reviewed and Negative - Past Medical History Pertinent Past Medical History: Yes Neurological History: Stroke ENT History: No Pertinent History Cardiac History: No Pertinent History Respiratory History: COPD Endocrine Medical History: No Pertinent History Musculoskeletal History: Arthritis GI Medical History: Irritable Bowel History: No Pertinent History Psycho-Social History: Depression Female Reproductive Disorders: Breast Cancer Other Medical History: rt breast cancer 2006 - Past Surgical History Past Surgical History: Yes Neuro Surgical History: No Pertinent History Cardiac: No Pertinent History Respiratory: No Pertinent History Gastrointestinal: No Pertinent History Genitourinary: No Pertinent History Musculoskeletal: No Pertinent History Female Surgical History: Lumpectomy Other Surgical History: breast cancer. right breast - Social History Smoking Status: Light tobacco smoker How long have you smoked: 30 yrs Exposure to second hand smoke: Yes Drug Use: none Patient Lives Alone: No - Social Determinants of Health Will the patient participate in the screening: Declined to provide - Nursing Vital Signs Nursing Vital Signs: Initial Vital Signs Temperature 97.1 F 04/29/24 16:55 Pulse Rate 88 04/29/24 16:55 Respiratory Rate 18 04/29/24 16:55 Blood Pressure 116/77 04/29/24 16:55 O2 Sat by Pulse Oximetry 92 L 04/29/24 16:55 Pain Scale Pain Intensity 0 - Physical Exam General Appearance: no apparent distress, alert Eye Exam: PERRL/EOMI, eyes nml inspection Ears, Nose, Throat Exam: normal ENT inspection, TMs normal, pharynx normal, moist mucous membranes Neck Exam: normal inspection, non-tender, supple, full range of motion Respiratory Exam: normal breath sounds, lungs clear, airway intact, No respiratory distress Cardiovascular Exam: regular rate/rhythm, normal heart sounds, normal peripheral pulses Gastrointestinal/Abdomen Exam: soft, normal bowel sounds, No tenderness, No mass Back Exam: normal inspection, normal range of motion, No CVA tenderness, No vert ebral tenderness Extremity Exam: normal inspection, normal range of motion, pelvis stable, other (Right upper extremity/humerus is angulated with skin tenting. However the ex tremities neurovascular tact distally compartments are soft cap refill less than 2 seconds.) Neurologic Exam: alert, oriented x 3, cooperative, normal mood/affect, sensation nml, No motor deficits Skin Exam: normal color, warm, dry, No rash Lymphatic Exam: No adenopathy SpO2 Interpretation: normal SpO2: 93 O2 Delivery: Room Air - Course Nursing assessment & vital signs reviewed: Yes EKG Interpreted by Me: RATE (81), Sinus Rhythm, prolonged QT interval, NORMAL QRS (Nonspecific T wave abnormalities) - Radiology Exams Humerus X-ray Interpretation: Teleradiologist Report (Angulated displaced spiral fracture proximal humerus) Ordered Tests: Active Orders 24 hr Category Date Time Status Atomic Physics Professor STAT Care 04/29/24 16:59 Completed EKG-ER Only STAT Care 04/29/24 16:59 Completed IV Insertion STAT Care 04/29/24 16:59 Completed Pulse Oximetry (ED) STAT Care 04/29/24 16:59 Completed HUMERUS Stat Exams 04/29/24 17:00 Taken BLOOD CULTURE Stat Lab 04/29/24 18:48 Received CBC W DIFF Stat Lab 04/29/24 17:00 Completed CMP Stat Lab 04/29/24 17:00 Completed CULTURE,URINE Stat Lab 04/29/24 21:03 Received TROPONIN Q4H Lab 04/29/24 17:00 Completed TROPONIN Q4H Lab 04/29/24 21:00 Completed UA W/RFX UR CULTURE Stat Lab 04/29/24 21:03 Completed Medication Summary Discontinued Medications Generic Name Dose Route Start Last Admin Trade Name Freq PRN Reason Stop Dose Admin Sodium Chloride 1,000 mls @ 100 mls/hr 04/29/24 17:00 04/29/24 17:28 Sodium Chloride 0.9% 1000 Ml IV 05/29/24 16:59 100 mls/hr .Q10H ALETHA Administration Ceftriaxone Sodium 1 gm in 100 mls @ 200 mls/hr 04/29/24 21:35 04/29/24 21:41 Rocephin 1 Gm / 100 Ml Nacl IV 04/29/24 22:04 200 ml/hr STAT ONE 200 mls/hr Administration Ceftriaxone Sodium Confirm 04/29/24 21:38 Rocephin 1 Gm / 100 Ml Nacl Administered 04/29/24 21:39 Dose 1 gm in 100 mls @ ud IV .STK-MED ONE Sodium Chloride Confirm 04/29/24 17:25 Sodium Chloride 0.9% 1000 Ml Administered 04/29/24 17:26 Dose 1,000 mls @ .ROUTE .[facility] ONE Lab/Rad Data: Laboratory Result Diagrams 04/29/24 17:00 04/29/24 17:00 Laboratory Results 04/29/24 04/29/24 04/29/24 Range/Units 21:03 21:00 17:00 WBC (3.98-10.04) x10^3/uL RBC (3.93-5.22) x10^6/uL Hgb (11.2-15.7) g/dL Hct (34.1-44.9) % MCV (79.4-94.8) fL MCH (25.6-32.2) pg MCHC (32.2-35.5) g/dL RDW (11.7-14.4) % Plt Count (182-369) x10^3/uL MPV (9.4-12.3) fL Gran % (34.0-71.1) % Immature Gran % (Auto) (0.001-0.429) % Nucleat RBC Rel Count (0.00-0.2) % Eos # (Auto) (0.04-0.36) x10^3/uL Immature Gran # (Auto) (0.001-0.031) x10^3u/L Absolute Lymphs (auto) (1.18-3.74) x10^3/uL Absolute Monos (auto) (0.24-0.86) x10^3/uL Absolute Nucleated RBC (0.00-0.012) x10^3u/L Lymphocytes % (19.3-51.7) % Monocytes % (4.7-12.5) % Eosinophils % (0.7-5.8) % Basophils % (0.1-1.2) % Absolute Granulocytes (1.56-6.13) x10^3/uL Basophils # (0.01-0.08) x10^3/uL Sodium (135-145) mmol/L Potassium (3.5-5.1) mmol/L Chloride (98-107) mmol/L Carbon Dioxide (22-30) mmol/L Anion Gap (5-15) MEQ/L BUN (7-17) mg/dL Creatinine (0.52-1.04) mg/dL Estimated GFR ML/MIN Glucose (74-106) mg/dL Calcium (8.4-10.2) mg/dL Total Bilirubin (0.2-1.3) mg/dL AST (14-36) U/L ALT (0-35) U/L Alkaline Phosphatase (38-126) U/L Troponin I < 0.012 < 0.012 (0.000-0.033) ng/mL Serum Total Protein (6.3-8.2) g/dL Albumin (3.5-5.0) g/dL Urine Color Dark Yellow A (Yellow) Urine Appearance Cloudy A (Clear) Urine pH 5.5 (4.6-8.0) Ur Specific [place] 1.025 (1.005-1.030) Urine Protein 100 A (Negative) Urine Glucose (UA) Negative (Negative) mg/dL Urine Ketones Trace A (Negative) Urine Blood Large A (Negative) Urine Nitrite Positive A (Negative) Urine Bilirubin Negative (Negative) Urine Urobilinogen 1.0 A (0.2) mg/dL Ur Leukocyte Esterase Trace A (Negative) U Hyaline Cast (Auto) NONE SEEN (0-2) /LPF Urine Microscopic RBC 21-50 A (0-5) /HPF Urine Microscopic WBC 11-20 A (0-5) /HPF Ur Epithelial Cells Moderate A (None Seen) /HPF Urine Bacteria Many A (None Seen) /HPF Urine Culture Reflexed YES (NO) 04/29/24 04/29/24 Range/Units 17:00 17:00 WBC 22.8 H (3.98-10.04) x10^3/uL RBC 4.76 (3.93-5.22) x10^6/uL Hgb 14.0 (11.2-15.7) g/dL Hct 43.3 (34.1-44.9) % MCV 91.0 (79.4-94.8) fL MCH 29.4 (25.6-32.2) pg MCHC 32.3 (32.2-35.5) g/dL RDW 13.0 (11.7-14.4) % Plt Count 277 (182-369) x10^3/uL MPV 10.0 (9.4-12.3) fL Gran % 83.2 H (34.0-71.1) % Immature Gran % (Auto) 0.4 (0.001-0.429) % Nucleat RBC Rel Count 0.0 (0.00-0.2) % Eos # (Auto) 0.11 (0.04-0.36) x10^3/uL Immature Gran # (Auto) 0.10 H (0.001-0.031) x10^3u/L Absolute Lymphs (auto) 2.09 (1.18-3.74) x10^3/uL Absolute Monos (auto) 1.44 H (0.24-0.86) x10^3/uL Absolute Nucleated RBC 0.00 (0.00-0.012) x10^3u/L Lymphocytes % 9.2 L (19.3-51.7) % Monocytes % 6.3 (4.7-12.5) % Eosinophils % 0.5 L (0.7-5.8) % Basophils % 0.4 (0.1-1.2) % Absolute Granulocytes 18.98 H (1.56-6.13) x10^3/uL Basophils # 0.09 H (0.01-0.08) x10^3/uL Sodium 137 (135-145) mmol/L Potassium 3.8 (3.5-5.1) mmol/L Chloride 104 (98-107) mmol/L Carbon Dioxide 21 L (22-30) mmol/L Anion Gap 16.2 H (5-15) MEQ/L BUN 23 H (7-17) mg/dL Creatinine 1.21 H (0.52-1.04) mg/dL Estimated GFR 46.2 ML/MIN Glucose 152 H (74-106) mg/dL Calcium 9.5 (8.4-10.2) mg/dL Total Bilirubin 0.40 (0.2-1.3) mg/dL AST 19 (14-36) U/L ALT 10 (0-35) U/L Alkaline Phosphatase 93 (38-126) U/L Troponin I (0.000-0.033) ng/mL Serum Total Protein 7.3 (6.3-8.2) g/dL Albumin 4.1 (3.5-5.0) g/dL Urine Color (Yellow) Urine Appearance (Clear) Urine pH (4.6-8.0) Ur Specific [place] (1.005-1.030) Urine Protein (Negative) Urine Glucose (UA) (Negative) mg/dL Urine Ketones (Negative) Urine Blood (Negative) Urine Nitrite (Negative) Urine Bilirubin (Negative) Urine Urobilinogen (0.2) mg/dL Ur Leukocyte Esterase (Negative) U Hyaline Cast (Auto) (0-2) /LPF Urine Microscopic RBC (0-5) /HPF Urine Microscopic WBC (0-5) /HPF Ur Epithelial Cells (None Seen) /HPF Urine Bacteria (None Seen) /HPF Urine Culture Reflexed (NO) - Progress Progress: improved Progress Note: Case discussed with Dr. Rowe of orthopedic surgery. He reviewed the x-rays and feels that the patient will require transfer to a trauma center. I spoke to Dr. Rowe at approximately 5:35 PM. 04/29/24 17:[address] Ambrocio Conti of orthopedic surgery at 6:06 PM. 04/29/24 18:06 79-year-old female presents to our ED for evaluation of pain to the right h umerus secondary to a fall. Physical exam reveals an obvious deformity with tenting of her skin. The involved extremities neurovascular tact distally compartments are soft cap refill less than 2 seconds. No open fracture. The skin is intact. Workup reveals a leukocytosis of 22,000. There is no obvious source however urinalysis is yet to be obtained. Blood cultures obtained. However we will transfer patient to [facility] ER for further evaluation and treatment. Complexity problem addressed is moderate acute complicated. No critical care time. Complex of data reviewed and analyzed is extensive. Test ordered test reviewed results analyzed and correlated clinically with history and physical examination. Management discussed with Dr. Rowe orthopedic surgeon who advises transfer. Patient accepted to [facility] by Dr. Ambrocio Conti orthopedic surgeon. Plan of care discussed with patient. She agrees to transfer to [facility] for further evaluation and treatment. Risk of complication and or risk morbidity/mortality patient management is high. Patie nt requires transfer to higher level of care. Vital stable. Time spent discharge patient approximately 30 minutes. Plan of care established for shared decision making. No social determinants of health present impede follow-up. Portions of this note were created with voice recognition technology. There may be grammatical, spelling, punctuation or sound alike errors Transfer center advised that the accidentally connected us with to the wrong orthopedic surgeon. They subsequently corrected themselves and connected us to orthopedic surgeon at [facility] subs transfer at 6:54 PM. 04/29/24 18:15 Patient accepted by ER physician Dr. Hermosillo at 7:02 PM Patient neurovascular intact distally at time of discharge at approximately 10:20 PM 04/29/24 22:30 Counseled pt/family regarding: lab results, diagnosis, rad results - Departure Departure Disposition: Transfer Clinical Impression: Fall, Humerus fracture, UTI (urinary tract infection) Condition: Stable Critical Care Time: No Referrals: AICHA PAREDES NP [Primary Care Provider] - Follow up/PCP as directed
[2024-04-29 21:16] LABS: Appearance Cloudy (Clear); Bacteria Many /HPF (None Seen); Bilirubin Negative (Negative); Blood Large (Negative); Epithelial Cells Moderate /HPF (None Seen); Glucose, Urine Negative (Negative); Hyaline Casts NONE SEEN /LPF (0-2); Ketones Trace (Negative); Leukocyte Esterase Trace (Negative); Nitrite Positive (Negative); Ph 5.5 (4.6-8.0); Protein,Urine Dip 100 (Negative); RBC 21-50 /HPF (0-5); Specific Gravity 1.025 (1.005-1.030)
[2024-04-29 21:20] LABS: ADD URINE CULTURE? YES (NO)
[2024-04-29 21:35] VITALS: PULSE 77
[2024-04-29] MEDS ORDERED: ROCEPHIN 1 GM / 100 ML NaCl 1 GM/100 ML IVPB IV ONE (21:38)
[2024-04-29] MEDS: ROCEPHIN 1 GM / 100 ML NaCl 1 GM/100 ML IVPB IV ONE (21:41)
[2024-04-29 22:04] VITALS: BP 143/90; RESP 25
[2024-04-29 22:31] VITALS: O2SAT 93
--- NOTE | 2024-04-30 08:38 | XRAY ---
Indication: Pain following fall. Comparison: None 2 view right humerus demonstrates displaced and moderately angulated proximal humeral shaft fracture. Elsewhere osteopenia and mild AC degenerative changes. No other bony, articular, or soft tissue abnormalities.
== END 2024-04-29 22:22 | disposition short-term general hospital (02) ==
LOC: ED 16:54
DX: S42.201A Unspecified fracture of upper end of right humerus, initial encounter for closed fracture (principal); W18.39XA Other fall on same level, initial encounter; Y93.01 Activity, walking, marching and hiking; Y92.002 Bathroom of unspecified non-institutional (private) residence as the place of occurrence of the external cause; N39.0 Urinary tract infection, site not specified; D72.829 Elevated white blood cell count, unspecified; Z72.0 Tobacco use
CPT/HCPCS: 36000; 36415; 73060; 80053; 81001; 84484; 85025; 87040; 87077; 87086; 87186; 93005; 93041; 94760; 96365; 96374; 99285; J0696